=== PATIENT | male | born 1955 | race American Indian/Alaskan Native ===

== ENCOUNTER 2017-02-15 09:50 | Emergency (ER) | payer SELFPAY ==
[2017-02-15 10:33] VITALS: BP 126/75
--- NOTE | 2017-02-15 10:54 | Emergency Department Report ---
Entered by ED FERRARI, acting as scribe for MARY CHOWDHURY PA. Chief Complaint: Psych Stated Complaint: MENTAL EVAL Time Seen by Provider: 02/15/17 10:40 - HPI History of Present Illness: Patient presents to the ED c/o visual hallucinations for 7 days. Report seeing animals and people. Denies any pain. Pt has a PMHx of mental health problems. - ROS Review of Systems: All system are negative unless stated in HPI above. - Exam Vital Signs: Vital Signs 02/15/17 10:30 Temperature 99.1 F Pulse Rate 87 Respiratory 20 Rate Blood Pressure 126/75 O2 Sat by Pulse 97 Oximetry Physical Exam: General:well nourished, well developed, nontoxic in appearance, in no acute distress Cardiovascular: S1/S2 regular rate and rhythm. No murmur. Psychiatric: Calm. Normal behavior. Positive visual hallucinations. No homicidal ideation. No suicidal ideation. MSE screening note: Focused history and physical exam performed. Due to findings the following was ordered: ED Medical Decision Making - Medical Decision Making Medical decision making: Patient seen by provider in triage area. Appropriate protocol activated and patient to main ED to be seen by provider ED Disposition for MSE Condition: Stable This documentation as recorded by the scribe,ED FERRARI,accurately reflects the service I personally performed and the decisions made by me,MARY CHOWDHURY PA.
[2017-02-15 11:08] LABS: Basophils % (Auto) 0.4 % (0.0-1.8); Eosinophils % (Auto) 1.1 % (0.0-4.3); Hematocrit 42.9 % (35.5-45.6); Hemoglobin 14.2 gm/dl (11.8-15.2); Mean Corpuscular HGB Conc 33 % (32-34); Mean Corpuscular Hemoglobin 29 pg (28-32); Mean Corpuscular Volume 88 fl (84-94); Platelet Count 201 K/mm3 (140-440); Red Blood Count 4.87 M/mm3 (3.65-5.03); Red Cell Distribution Width 14.3 % (13.2-15.2); White Blood Count 7.7 K/mm3 (4.5-11.0)
[2017-02-15 11:15] LABS: Anion Gap 16 mmol/L; BUN/Creatinine Ratio 16.25; Blood Urea Nitrogen 13 mg/dL (9-20); Calcium 9.4 mg/dL (8.4-10.2); Carbon Dioxide 26 mmol/L (22-30); Chloride 101.4 mmol/L (98-107); Glucose 128 mg/dL (75-100); Potassium 3.6 mmol/L (3.6-5.0); Sodium 140 mmol/L (137-145)
--- NOTE | 2017-02-15 12:23 | Emergency Department Report ---
ED Psych HPI - General Chief Complaint: Psych Stated Complaint: MENTAL EVAL Time Seen by Provider: 02/15/17 10:54 Source: patient Mode of arrival: Ambulatory Limitations: No Limitations - History of Present Illness Initial Comments: 62-year-old male presents to the emergency department complaining of visual hallucinations. Patient states over the past several days he has been people and his dog. Patient states since September he has had 5 family members , including his Candace. He denies auditory hallucinations. He also denies suicidal or homicidal thoughts. There are no other complaints. -: Gradual, days(s) (5) Associated Psychiatric Symptoms: visual hallucinations History of same: Yes Quality: intermittent Improves With: none Worsens With: none Associated Symptoms: denies other symptoms Treatments Prior to Arrival: none - Related Data Home Medications Medication Instructions Recorded Confirmed Last Taken Unobtainable 02/15/17 02/15/17 Unknown Allergies Allergy/AdvReac Type Severity Reaction Status Date / Time No Known Allergies Allergy Unverified 02/15/17 10:29 ED Review of Systems ROS: Stated complaint: MENTAL EVAL Other details as noted in HPI Comment: All other systems reviewed and negative Psychiatric: visual hallucinations. denies: auditory hallucinations, homicidal thoughts, suicidal thoughts ED Past Medical Hx - Past Medical History Previous Medical History?: Yes Hx Hypertension: Yes Hx Psychiatric Treatment: Yes (psychosis) - Surgical History Past Surgical History?: No - Family History Family history: no significant - Social History Smoking Status: Former Smoker Substance Use Type: Marijuana, Prescribed - Medications Home Medications: Home Medications Medication Instructions Recorded Confirmed Last Taken Type Unobtainable 02/15/17 02/15/17 Unknown History ED Physical Exam - General Limitations: No Limitations General appearance: alert, in no apparent distress - Head Head exam: Present: atraumatic, normocephalic - Eye Eye exam: Present: normal appearance, PERRL, EOMI - ENT ENT exam: Present: normal exam, normal orophraynx, mucous membranes moist - Neck Neck exam: Present: normal inspection, full ROM. Absent: tenderness - Respiratory Respiratory exam: Present: normal lung sounds bilaterally. Absent: respiratory distress - Cardiovascular Cardiovascular Exam: Present: regular rate, normal rhythm, normal heart sounds - GI/Abdominal GI/Abdominal exam: Present: soft, normal bowel sounds. Absent: distended, tenderness - Extremities Exam Extremities exam: Present: normal inspection, full ROM. Absent: tenderness - Back Exam Back exam: Present: normal inspection, full ROM. Absent: tenderness - Neurological Exam Neurological exam: Present: alert, oriented X3. Absent: motor sensory deficit - Skin Skin exam: Present: warm, dry, intact ED Course Vital Signs 02/15/17 10:30 Temperature 99.1 F Pulse Rate 87 Respiratory 20 Rate Blood Pressure 126/75 O2 Sat by Pulse 97 Oximetry ED Medical Decision Making - Lab Data Result diagrams: 02/15/17 10:46 02/15/17 10:46 - Medical Decision Making Lab results reviewed. Patient is likely cleared. Patient does not meet in patient criteria, form 1013 will not be signed. Patient has been evaluated by mental health and is being referred for outpatient treatment. Patient will be discharged home at this time. - Differential Diagnosis psychosis, grief reaction Critical care attestation.: If time is entered above; I have spent that time in minutes in the direct care of this critically ill patient, excluding procedure time. ED Disposition Clinical Impression: Visual hallucinations, Grief reaction Disposition: DISCHARGED TO HOME OR SELFCARE Is pt being admited?: No Condition: Stable Instructions: Grief and Loss (ED) Referrals: [facility] [Other] - 3-5 Days Time of Disposition: 14:47
[2017-02-15 12:32] LABS: Urine Drugs of Abuse Note Disclamer
[2017-02-15 12:44] LABS: Bilirubin,Urine NEG (Negative); Blood,Urine NEG (Negative); Ketones,Urine NEG (Negative); Leukocyte Esterase,Urine NEG (Negative); Mucus,Urine 2+ /HPF; Nitrite,Urine NEG (Negative); Protein,Urine <15 mg/dL mg/dL (Negative)
== END 2017-02-15 15:01 | disposition home or self-care (01) ==
LOC: EEVIPCON 09:50 → ED 09:50
DX: R44.1 Visual hallucinations (principal); F43.20 Adjustment disorder, unspecified; I10 Essential (primary) hypertension; F29 Unspecified psychosis not due to a substance or known physiological condition; F12.10 Cannabis abuse, uncomplicated; Z87.891 Personal history of nicotine dependence
CPT/HCPCS: 36415; 80048; 80307; 81001; 85025; 99284; G0480; 80320

== ENCOUNTER 2017-11-02 12:20 | Inpatient (IN) | payer OTHER ==
[2017-11-02] MEDS ORDERED: NACL 0.9% 1000 ML 1,000 ML ONE (13:05)
[2017-11-02 13:08] LABS: Basophils % (Auto) 0.1 % (0.0-1.8); Eosinophils % (Auto) 0.3 % (0.0-4.3); Hematocrit 36.1 % (35.5-45.6); Hemoglobin 12.1 gm/dl (11.8-15.2); Lymphocytes # (Auto) 0.7 K/mm3 (1.2-5.4); Lymphocytes % (Auto) 7.4 % (13.4-35.0); Mean Corpuscular HGB Conc 33 % (32-34); Mean Corpuscular Hemoglobin 30 pg (28-32); Mean Corpuscular Volume 88 fl (84-94); Monocytes # (Auto) 0.7 K/mm3 (0.0-0.8); Monocytes % (Auto) 7.3 % (0.0-7.3); Platelet Count 220 K/mm3 (140-440); Red Blood Count 4.08 M/mm3 (3.65-5.03); Red Cell Distribution Width 13.6 % (13.2-15.2)
[2017-11-02] MEDS ORDERED: NACL 0.9% 1000 ML 1,000 ML IV ONE ×3 (13:08→15:18)
[2017-11-02 13:23] LABS: Calcium 9.1 mg/dL (8.4-10.2)
[2017-11-02 13:24] LABS: INR 1.14 (0.87-1.13); Partial Thromboplastin Time 27.2 Sec. (24.2-36.6)
--- NOTE | 2017-11-02 14:28 | Emergency Department Report ---
ED Syncope HPI - General Chief Complaint: Weakness Stated Complaint: SYNCOPE/MUSCLE CRAMPS/HALUCINATIONS Time Seen by Provider: 11/02/17 13:10 Source: patient, family Exam Limitations: other (dementia) - History of Present Illness Initial Comments: 62-year-old male with a past medical history hypertension, Lewy body dementia, and psychosis presents to the hospital with multiple episodes of syncope and increased episodes of combative behavior. Patient lives at home with his daughter who is in the process of trying to get him into a group home. She states for the past week patient has been having recurrent syncopal episodes are primarily occur with standing. Also decreased food intake reported for the past week although patient was to drink fluids. Also complaining of intermittent cramping to lower extremities. Patient has significant dementia and is unable to provide any history of present illness. He denies any pain currently. He is oriented to self, knows that his daughter is in a room with him but does not know the place or year. Patient's also able to follow commands. Patient has been on Aricept since August. Patient's daughter felt like this medication could be contributing to patients symptoms therefore she discontinued the medication on October 30. Patient did not receive his a.m. blood pressure medications today. Last dose was yesterday a.m. - Related Data Allergies/Adverse Reactions: Allergies No Known Allergies Allergy (Unverified 02/15/17 10:29) Home Medications: Ambulatory Orders Unobtainable 02/15/17 ED Review of Systems ROS: Stated complaint: SYNCOPE/MUSCLE CRAMPS/HALUCINATIONS Other details as noted in HPI Comment: Unobtainable due to pts medical conditions (dementia, see hpi) ED Past Medical Hx - Past Medical History Previous Medical History?: Yes Hx Hypertension: Yes Hx Psychiatric Treatment: Yes (psychosis) - Surgical History Past Surgical History?: No - Social History Smoking Status: Never Smoker Substance Use Type: Prescribed - Medications Home Medications: Home Medications Medication Instructions Recorded Confirmed Last Taken Type Unobtainable 02/15/17 02/15/17 Unknown History ED Physical Exam - General Limitations: Physical Limitation - Other Other exam information: General: dementia, no distress noted Head exam: Atraumatic, normocephalic Eyes exam: Normal appearance, pupils equal reactive to light ENT: Moist mucous membrane, normal oropharynx Neck exam: Normal inspection, full range of motion, no meningismus nontender Respiratory exam: Clear to auscultation bilateral, no wheezes, rales, crackles Cardiovascular: Normal rate and rhythm Abdomen: Soft, nondistended, and nontender, with normal bowel sounds, no rebound, or guarding Extremity: Full range of motion normal inspection no deformity Back: Normal Inspection, full range of motion, no tenderness Neurologic: Alert, oriented to self only, cranial nerves intact, 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 Able to lift both legs off the bed and sustained against gravity. Sensation grossly intact Psychiatric: normal affect, normal mood Skin: Warm, dry, intact ED Course Vital Signs 11/02/17 11/02/17 11/02/17 12:31 12:50 13:00 Temperature 98 F Pulse Rate 90 76 70 Respiratory 20 17 17 Rate Blood Pressure 60/30 80/46 Blood Pressure [Left] Blood Pressure [Right] O2 Sat by Pulse 97 99 Oximetry 11/02/17 11/02/17 11/02/17 13:30 13:40 14:08 Temperature Pulse Rate 68 75 Respiratory 18 25 H Rate Blood Pressure 80/46 89/46 Blood Pressure 80/46 [Left] Blood Pressure 70/38 [Right] O2 Sat by Pulse 98 99 100 Oximetry 11/02/17 14:31 Temperature Pulse Rate 68 Respiratory 18 Rate Blood Pressure 98/52 Blood Pressure [Left] Blood Pressure [Right] O2 Sat by Pulse 99 Oximetry - Reevaluation(s) Reevaluation #1: 11/02/17 14:29 sbp 89 after 1 L of NS, second Liter pending ED Medical Decision Making - Lab Data Result diagrams: 11/02/17 Unknown 11/02/17 Unknown Lab Results 11/02/17 11/02/17 11/02/17 Range/Units 14:28 Unknown Unknown WBC 10.1 (4.5-11.0) K/mm3 RBC 4.08 (3.65-5.03) M/mm3 Hgb 12.1 (11.8-15.2) gm/dl Hct 36.1 (35.5-45.6) % MCV 88 (84-94) fl MCH 30 (28-32) pg MCHC 33 (32-34) % RDW 13.6 (13.2-15.2) % Plt Count 220 (140-440) K/mm3 Lymph % (Auto) 7.4 L (13.4-35.0) % [place] % (Auto) 7.3 (0.0-7.3) % Eos % (Auto) 0.3 (0.0-4.3) % Baso % (Auto) 0.1 (0.0-1.8) % Lymph # 0.7 L (1.2-5.4) K/mm3 [place] # 0.7 (0.0-0.8) K/mm3 Eos # 0.0 (0.0-0.4) K/mm3 Baso # 0.0 (0.0-0.1) K/mm3 Seg Neutrophils % 84.9 H (40.0-70.0) % Seg Neutrophils # 8.6 H (1.8-7.7) K/mm3 PT 15.2 H (12.2-14.9) Sec. INR 1.14 H (0.87-1.13) APTT 27.2 (24.2-36.6) Sec. Thrombin Time (15.1-19.6) Sec. Sodium (137-145) mmol/L Potassium (3.6-5.0) mmol/L Chloride (98-107) mmol/L Carbon Dioxide (22-30) mmol/L Anion Gap mmol/L BUN (9-20) mg/dL Creatinine (0.8-1.5) mg/dL Estimated GFR ml/min BUN/Creatinine Ratio % Glucose (75-100) mg/dL Calcium (8.4-10.2) mg/dL Magnesium (1.7-2.3) mg/dL Total Creatine Kinase (55-170) units/L CK-MB (CK-2) (0.0-4.0) ng/mL CK-MB (CK-2) Rel Index (0-4) Troponin T (0.00-0.029) ng/mL Triglycerides (2-149) mg/dL Cholesterol (50-199) mg/dL LDL Cholesterol Direct (50-130) mg/dL HDL Cholesterol (40-59) mg/dL Cholesterol/HDL Ratio % Urine Color Yellow (Yellow) Urine Turbidity Clear (Clear) Urine pH 6.0 (5.0-7.0) Ur Specific [place] 1.018 (1.003-1.030) Urine Protein 30 mg/dl (Negative) mg/dL Urine Glucose (UA) 50 (Negative) mg/dL Urine Ketones Tr (Negative) mg/dL Urine Blood Lg (Negative) Urine Nitrite Neg (Negative) Urine Bilirubin Neg (Negative) Urine Urobilinogen 4.0 (<2.0) mg/dL Ur Leukocyte Esterase Neg (Negative) Urine WBC (Auto) 12.0 H (0.0-6.0) /HPF Urine RBC (Auto) 63.0 (0.0-6.0) /HPF U Epithel Cells (Auto) 1.0 (0-13.0) /HPF Hyaline Casts 1 /LPF Urine Mucus 1+ /HPF 11/02/17 11/02/17 11/02/17 Range/Units Unknown Unknown Unknown WBC (4.5-11.0) K/mm3 RBC (3.65-5.03) M/mm3 Hgb (11.8-15.2) gm/dl Hct (35.5-45.6) % MCV (84-94) fl MCH (28-32) pg MCHC (32-34) % RDW (13.2-15.2) % Plt Count (140-440) K/mm3 Lymph % (Auto) (13.4-35.0) % [place] % (Auto) (0.0-7.3) % Eos % (Auto) (0.0-4.3) % Baso % (Auto) (0.0-1.8) % Lymph # (1.2-5.4) K/mm3 [place] # (0.0-0.8) K/mm3 Eos # (0.0-0.4) K/mm3 Baso # (0.0-0.1) K/mm3 Seg Neutrophils % (40.0-70.0) % Seg Neutrophils # (1.8-7.7) K/mm3 PT (12.2-14.9) Sec. INR (0.87-1.13) APTT (24.2-36.6) Sec. Thrombin Time 14.6 L (15.1-19.6) Sec. Sodium 137 (137-145) mmol/L Potassium 3.5 L (3.6-5.0) mmol/L Chloride 94.7 L (98-107) mmol/L Carbon Dioxide 26 (22-30) mmol/L Anion Gap 20 mmol/L BUN 44 H (9-20) mg/dL Creatinine 2.0 H (0.8-1.5) mg/dL Estimated GFR 41 ml/min BUN/Creatinine Ratio 22 % Glucose 135 H (75-100) mg/dL Calcium 9.1 (8.4-10.2) mg/dL Magnesium 2.00 (1.7-2.3) mg/dL Total Creatine Kinase 246 H (55-170) units/L CK-MB (CK-2) 3.7 (0.0-4.0) ng/mL CK-MB (CK-2) Rel Index 1.5 (0-4) Troponin T 0.031 H (0.00-0.029) ng/mL Triglycerides 54 (2-149) mg/dL Cholesterol 135 (50-199) mg/dL LDL Cholesterol Direct 63 (50-130) mg/dL HDL Cholesterol 62 H (40-59) mg/dL Cholesterol/HDL Ratio 2.17 % Urine Color (Yellow) Urine Turbidity (Clear) Urine pH (5.0-7.0) Ur Specific [place] (1.003-1.030) Urine Protein (Negative) mg/dL Urine Glucose (UA) (Negative) mg/dL Urine Ketones (Negative) mg/dL Urine Blood (Negative) Urine Nitrite (Negative) Urine Bilirubin (Negative) Urine Urobilinogen (<2.0) mg/dL Ur Leukocyte Esterase (Negative) Urine WBC (Auto) (0.0-6.0) /HPF Urine RBC (Auto) (0.0-6.0) /HPF U Epithel Cells (Auto) (0-13.0) /HPF Hyaline Casts /LPF Urine Mucus /HPF - EKG Data -: EKG Interpreted by [place] EKG shows normal: sinus rhythm (91), axis (21), QRS complexes (93), ST-T waves ( no stemi/t inv) - EKG Data When compared to previous EKG there are: previous EKG unavailable - Radiology Data Radiology results: report reviewed ct head: naf cxr: unremarkable - Medical Decision Making Patient's blood pressure responding to IV fluids UA positive for infection bolivar ph, lactic, blood and urine cultures pending Rocephin initiated CT head chest x-ray unremarkable Hospitalist informed Patient will be admitted to telemetry but if systolic pressure continued to drop will need ICU upgrade - Differential Diagnosis infection, anemia, medication overdose, vasovagal, dehydration Critical Care Time: No Critical care attestation.: If time is entered above; I have spent that time in minutes in the direct care of this critically ill patient, excluding procedure time. ED Disposition Clinical Impression: Syncope, Renal insufficiency, UTI (urinary tract infection), Hypokalemia, Elevated troponin, Hypotension Disposition: OP ADMIT IP TO THIS HOSP Is pt being admited?: Yes Condition: Stable Time of Disposition: 16:13 (Dr Lindsey/hosp)
--- NOTE | 2017-11-02 14:34 | XRay Report ---
AP CHEST: HISTORY: Altered mental status, hypotension AP view of the chest demonstrates a normal mediastinal and cardiac contour with clear lungs and normal bony and soft tissue structures. IMPRESSION: Unremarkable AP chest.
--- NOTE | 2017-11-02 14:46 | Cat Scan Report ---
CT HEAD WITHOUT CONTRAST: HISTORY: Neurological deficits. TECHNIQUE: Sequential 2.5mm CT images. COMPARISON: none. FINDINGS: Cerebral Parenchyma: Within normal limits. Cerebellum: Within normal limits. Brainstem: Within normal limits. Ventricles: Normal. Sella: Normal. Extra-axial spaces: Normal. Basal Cisterns: Normal. Intracranial Hemorrhage: None. Midline Shift: None. Calvarium: Normal. Sinuses: Normal. Mastoid Air Cells: Normal. Visualized Orbits: Normal. IMPRESSION: Cranial CT scan within normal limits.
[2017-11-02 14:50] LABS: Bilirubin,Urine NEG (Negative); Blood,Urine LG (Negative); Color,Urine Yellow (Yellow); Hyaline Casts,Urine 1 /LPF; Mucus,Urine 1+ /HPF; Nitrite,Urine NEG (Negative)
[2017-11-02 15:02] LABS: Creatine Kinase MB 3.7 ng/mL (0.0-4.0)
[2017-11-02] MEDS ORDERED: ROCEPHIN/NS 1 GM/50 ML 1 GM/50 ML BAG IV ONE (15:18)
[2017-11-02 15:51] LABS: Chol/HDL Ratio 2.17 %
[2017-11-02] MEDS ORDERED: cefTRIAXone 1 GM in NACL 0.9% 20 ML IV ONE (16:30)
--- NOTE | 2017-11-02 19:16 | History and Physical Report ---
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 Daughter attributes passing out to Aricept administration. Passes out when standing and loses consciousness for a few seconds. No chest pain. No shortness of breath. Also patient has been very poor oral intake. Patient also has cramping. No shortness of breath. Daughter says she wants a custodial placement for further care as she is unable to take care of him. No abdominal pain. No fever no chills. Very poor oral intake. Past Medical History Previous Medical History?: Yes Hx Hypertension: Yes Hx Psychiatric Treatment: Yes (psychosis) Early dementia. Agitation. Behavioral disturbances. Surgical History Past Surgical History?: No - Social History Smoking Status: Never Smoker Substance Use Type: Prescribed Family history hypertension Medications Aricept 10 mg once a day Risperdal 0.5 daily at bedtime Fluoxetine 40 mg once a day lisinopril 10 mg once a day Hydrochlorothiazide 25 mg once a day Aspirin 81 mg by mouth daily Review of System: Constitutional: no fever, no chills, no weight loss Ears, eyes, nose, mouth and throat: no nasal congestion, no nasal discharge, no sinus pressure, no vision change, no red eye. Neck: No neck pain or rigidity. Cardiovascular: No chest pain, no orthopnea, no palpitations, no leg swelling Respiratory: No shortness of breath, no cough, no congestion, no wheezing Gastrointestinal: no abdominal pain, no nausea, no vomiting Genitourinary : no dysuria, no hematuria Musculoskeletal: no joint swelling or muscle ache Integumentary: no rash, no pruritis Neurological: no parathesias, no numbness, no tingling.has behavioral disturbances. Agitation. Early dementia. Frequent syncopal attacks. No seizures. Endocrine: no cold or heat intolerance, no polyuria or polydipsia Hematologic/Lymphatic: no easy bruising, no easy bleeding, no gland swelling Allergic/Immunologic: no urticaria, no angioedema. Medications and Allergies Allergies Allergy/AdvReac Type Severity Reaction Status Date / Time No Known Allergies Allergy Unverified 02/15/17 10:29 Home Medications Medication Instructions Recorded Confirmed Last Taken Type Aspirin [Aspirin EC] 81 mg PO DAILY 11/02/17 11/02/17 11/01/17 History FLUoxetine HCL [PROzac] 40 mg PO QDAY 11/02/17 11/02/17 11/01/17 History Hydrochlorothiazide [HCTZ] 25 mg PO QDAY 11/02/17 11/02/17 11/01/17 History Lisinopril [Zestril TAB] 10 mg PO QDAY 11/02/17 11/02/17 11/01/17 History risperiDONE [Risperdal] 0.5 mg PO QHS 11/02/17 11/02/17 11/01/17 History Exam - Physical Exam Narrative exam: Patient lying comfortably in bed - Constitutional Vitals: Temp Pulse Resp BP Pulse Ox 98 F 77 15 112/63 99 11/02/17 12:31 11/02/17 17:30 11/02/17 17:30 11/02/17 17:30 11/02/17 17:30 General appearance: Present: no acute distress, well-nourished - EENT Eyes: Present: PERRL ENT: hearing intact, clear oral mucosa - Neck Neck: Present: supple, normal ROM - Respiratory Respiratory effort: normal Respiratory: bilateral: CTA - Cardiovascular Heart rate: 70 Rhythm: regular Heart Sounds: Present: S1 & S2. Absent: rub, click - Extremities Extremities: no ischemia, pulses intact, pulses symmetrical, No edema Peripheral Pulses: within normal limits - Abdominal General gastrointestinal: Present: soft, non-tender, non-distended, normal bowel sounds Male genitourinary: Present: normal - Integumentary Integumentary: Present: clear, warm, dry - Musculoskeletal Musculoskeletal: gait normal, strength equal bilaterally - Psychiatric Psychiatric: agitated, other (lying in bed. Tries to answer questions. Apparently agitated and aggressive behavior as per the daughter) - Neurologic Neurologic: CNII-XII intact, moves all extremities Results - Labs CBC & Chem 7: 11/02/17 Unknown 11/02/17 Unknown Labs: Laboratory Last Values WBC 10.1 K/mm3 (4.5-11.0) 11/02/17 Unknown RBC 4.08 M/mm3 (3.65-5.03) 11/02/17 Unknown Hgb 12.1 gm/dl (11.8-15.2) 11/02/17 Unknown Hct 36.1 % (35.5-45.6) 11/02/17 Unknown MCV 88 fl (84-94) 11/02/17 Unknown MCH 30 pg (28-32) 11/02/17 Unknown MCHC 33 % (32-34) 11/02/17 Unknown RDW 13.6 % (13.2-15.2) 11/02/17 Unknown Plt Count 220 K/mm3 (140-440) 11/02/17 Unknown Lymph % (Auto) 7.4 % (13.4-35.0) L 11/02/17 Unknown [place] % (Auto) 7.3 % (0.0-7.3) 11/02/17 Unknown Eos % (Auto) 0.3 % (0.0-4.3) 11/02/17 Unknown Baso % (Auto) 0.1 % (0.0-1.8) 11/02/17 Unknown Lymph # 0.7 K/mm3 (1.2-5.4) L 11/02/17 Unknown [place] # 0.7 K/mm3 (0.0-0.8) 11/02/17 Unknown Eos # 0.0 K/mm3 (0.0-0.4) 11/02/17 Unknown Baso # 0.0 K/mm3 (0.0-0.1) 11/02/17 Unknown Seg Neutrophils % 84.9 % (40.0-70.0) H 11/02/17 Unknown Seg Neutrophils # 8.6 K/mm3 (1.8-7.7) H 11/02/17 Unknown PT 15.2 Sec. (12.2-14.9) H 11/02/17 Unknown INR 1.14 (0.87-1.13) H 11/02/17 Unknown APTT 27.2 Sec. (24.2-36.6) 11/02/17 Unknown Thrombin Time 14.6 Sec. (15.1-19.6) L 11/02/17 Unknown VBG pH 7.340 (7.320-7.420) 11/02/17 18:10 Sodium 137 mmol/L (137-145) 11/02/17 Unknown Potassium 3.5 mmol/L (3.6-5.0) L 11/02/17 Unknown Chloride 94.7 mmol/L (98-107) L 11/02/17 Unknown Carbon Dioxide 26 mmol/L (22-30) 11/02/17 Unknown Anion Gap 20 mmol/L 11/02/17 Unknown BUN 44 mg/dL (9-20) H 11/02/17 Unknown Creatinine 2.0 mg/dL (0.8-1.5) H 11/02/17 Unknown Estimated GFR 41 ml/min 11/02/17 Unknown BUN/Creatinine Ratio 22 % 11/02/17 Unknown Glucose 135 mg/dL (75-100) H 11/02/17 Unknown Lactic Acid 0.80 mmol/L (0.7-2.0) 11/02/17 18:10 Calcium 9.1 mg/dL (8.4-10.2) 11/02/17 Unknown Magnesium 2.00 mg/dL (1.7-2.3) 11/02/17 Unknown Total Creatine Kinase 246 units/L (55-170) H 11/02/17 Unknown CK-MB (CK-2) 3.7 ng/mL (0.0-4.0) 11/02/17 Unknown CK-MB (CK-2) Rel Index 1.5 (0-4) 11/02/17 Unknown Troponin T 0.031 ng/mL (0.00-0.029) H 11/02/17 Unknown Triglycerides 54 mg/dL (2-149) 11/02/17 Unknown Cholesterol 135 mg/dL (50-199) 11/02/17 Unknown LDL Cholesterol Direct 63 mg/dL (50-130) 11/02/17 Unknown HDL Cholesterol 62 mg/dL (40-59) H 11/02/17 Unknown Cholesterol/HDL Ratio 2.17 % 11/02/17 Unknown Urine Color Yellow (Yellow) 11/02/17 14:28 Urine Turbidity Clear (Clear) 11/02/17 14:28 Urine pH 6.0 (5.0-7.0) 11/02/17 14:28 Ur Specific [place] 1.018 (1.003-1.030) 11/02/17 14:28 Urine Protein 30 mg/dl mg/dL (Negative) 11/02/17 14:28 Urine Glucose (UA) 50 mg/dL (Negative) 11/02/17 14:28 Urine Ketones Tr mg/dL (Negative) 11/02/17 14:28 Urine Blood Lg (Negative) 11/02/17 14:28 Urine Nitrite Neg (Negative) 11/02/17 14:28 Urine Bilirubin Neg (Negative) 11/02/17 14:28 Urine Urobilinogen 4.0 mg/dL (<2.0) 11/02/17 14:28 Ur Leukocyte Esterase Neg (Negative) 11/02/17 14:28 Urine WBC (Auto) 12.0 /HPF (0.0-6.0) H 11/02/17 14:28 Urine RBC (Auto) 63.0 /HPF (0.0-6.0) 11/02/17 14:28 U Epithel Cells (Auto) 1.0 /HPF (0-13.0) 11/02/17 14:28 Hyaline Casts 1 /LPF 11/02/17 14:28 Urine Mucus 1+ /HPF 11/02/17 14:28 Short CBC 11/02/17 Range/Units Unknown WBC 10.1 (4.5-11.0) K/mm3 Hgb 12.1 (11.8-15.2) gm/dl Hct 36.1 (35.5-45.6) % Plt Count 220 (140-440) K/mm3 BMP 11/02/17 Unknown Sodium 137 Potassium 3.5 L Chloride 94.7 L Carbon Dioxide 26 BUN 44 H Creatinine 2.0 H Glucose 135 H Calcium 9.1 Cardiac Enzymes 11/02/17 11/02/17 Range/Units Unknown Unknown Total Creatine Kinase 246 H (55-170) units/L CK-MB (CK-2) 3.7 (0.0-4.0) ng/mL Troponin T 0.031 H (0.00-0.029) ng/mL Urine 11/02/17 Range/Units 14:28 Urine Color Yellow (Yellow) Urine pH 6.0 (5.0-7.0) Ur Specific [place] 1.018 (1.003-1.030) Urine Protein 30 mg/dl (Negative) mg/dL Urine Glucose (UA) 50 (Negative) mg/dL - Imaging and Cardiology EKG: report reviewed (normal sinus rhythm nonspecific ST-T wave changes. interpreted by me) Chest x-ray: report reviewed CT Scan - head: report reviewed (no acute findings) Assessment and Plan Advance Directives: Yes (full code) VTE prophylaxis?: Chemical Plan of care discussed with patient/family: Yes - Patient Problems (1) Syncope Current Visit: Yes Status: Acute Qualifiers: Syncope type: unspecified Qualified Code(s): R55 - Syncope and collapse Plan to address problem: Multiple episodes of syncope as per the daughter.Initiate the syncope workup.We' ll stop the Aricept.Patient to get a Lexiscan echocardiogram and carotid duplex scan. Also IV fluids. (2) Acute kidney injury Current Visit: Yes Status: Acute Plan to address problem: Secondary to ATN versus volume depletion.Patient is on hydrochlorothiazide.which may be responsible for her renal insufficiency. We will stop the hydrochlorothiazide. We will also stop the lisinopril.we will switch him to amlodipine 10 mg once a day.Also IV fluids for now. (3) Elevated troponin Current Visit: Yes Status: Acute Plan to address problem: Elevated troponin secondary to elevated creatinine.patient get a Lexiscan as part of syncope workup (4) UTI (urinary tract infection) Current Visit: Yes Status: Acute Qualifiers: Urinary tract infection type: acute cystitis Plan to address problem: IV Rocephin for now (5) Hypertension Current Visit: Yes Status: Chronic Qualifiers: Hypertension type: essential hypertension Qualified Code(s): I10 - Essential (primary) hypertension Plan to address problem: stop lisinopril and hydrochlorothiaz. Start amlodipine 10 mg once a day. (6) DVT prophylaxis Current Visit: Yes Status: Acute Plan to address problem: on Lovenox 30 mg subcutaneous daily (7) Dementia Current Visit: Yes Status: Chronic Qualifiers: Dementia type: Lewy body dementia Dementia behavioral disturbance: with behavioral disturbance Qualified Code(s): G31.83 - Dementia with Lewy bodies; F02.81 - Dementia in other diseases classified elsewhere with behavioral disturbance; F02.81 - Dementia in other diseases classified elsewhere with behavioral disturbance; F02.81 - Dementia in other diseases classified elsewhere with behavioral disturbance Plan to address problem: Patient has early onset dementia.daughter attributes his syncopal episodes to Aricept. We will stop the Aricept.Mental health consult for management of behavioral disturbances (8) Hypokalemia Current Visit: Yes Status: Acute Plan to address problem: supplemented. Secondary to hydrochlorothiazide.
[2017-11-02] MEDS ORDERED: ROCEPHIN/NS 1 GM/50 ML 1 GM/50 ML BAG IV SCH (20:00)
[2017-11-02] MEDS ORDERED: ZESTRIL PO SCH (20:00)
[2017-11-02] MEDS ORDERED: HCTZ PO SCH (21:00)
[2017-11-02] MEDS ORDERED: NON-FORMULARY (Risperidone [Risperdal] 0.5 MG) PO SCH (22:00)
[2017-11-02] MEDS: NORVASC PO SCH (22:19)
[2017-11-02] MEDS: RisperDAL PO SCH (22:19)
[2017-11-03] MEDS: D5W/0.45% NACL/KCL 10 MEQ 10 MEQ/1,000 ML BAG IV SCH (02:34)
[2017-11-03 06:34] LABS: Basophils % (Auto) 0.4 % (0.0-1.8); Eosinophils # (Auto) 0.1 K/mm3 (0.0-0.4); Eosinophils % (Auto) 1.2 % (0.0-4.3); Hematocrit 29.3 % (35.5-45.6); Hemoglobin 10.1 gm/dl (11.8-15.2); Lymphocytes # (Auto) 1.6 K/mm3 (1.2-5.4); Mean Corpuscular HGB Conc 34 % (32-34); Mean Corpuscular Hemoglobin 31 pg (28-32); Mean Corpuscular Volume 89 fl (84-94); Monocytes # (Auto) 1.1 K/mm3 (0.0-0.8); Monocytes % (Auto) 10.1 % (0.0-7.3); Platelet Count 177 K/mm3 (140-440); Red Cell Distribution Width 13.5 % (13.2-15.2)
[2017-11-03 07:03] LABS: Alanine Aminotransferase 14 units/L (7-56); Albumin 3.2 g/dL (3.9-5); BUN/Creatinine Ratio 26; Blood Urea Nitrogen 31 mg/dL (9-20); Calcium 8.4 mg/dL (8.4-10.2); Hemolysis Index 2
[2017-11-03] MEDS: HALFPRIN EC PO SCH (10:00)
[2017-11-03] MEDS: PROzac PO SCH (10:00)
[2017-11-03] MEDS: NORVASC PO SCH (10:00)
[2017-11-03] MEDS ORDERED: NON-FORMULARY (Fluoxetine Hcl [Prozac] 40 MG) PO SCH (10:00)
[2017-11-03] MEDS ORDERED: LEXISCAN IV ONE ×2 (11:20→12:00)
--- NOTE | 2017-11-03 12:44 | Progress Note ---
Assessment and Plan Assessment and plan: Patient is a 62-year-old man from home with history of hypertension in E body dementia who presented with syncopal episode and cooperative behavior. CT head reported as no acute findings Chest x-ray reported as no acute findings Creatinine went from 2.0-->1.2 Hemoglobin was 12.1-->10.1 -Acute metabolic encephalopathy with dehydration: IVF -Syncope, autonomic dysfunction: Stress, echo pending -Drop in HCT, ?dilutional: repeat h/h -UTI: abx, follow cultures -TOMY, vasomotor nephropathy, poa: ivf -Lewy body with autonomic dysfunction is a poor prognostic sign: consult Neurology History Interval history: Patient was seen and examined. Follow-up on current diagnosis/ams. Overnight uneventful. Patient gives no history. Imaging, nursing note, chart, labs and old chart reviewed. Hospitalist Physical - Physical exam Narrative exam: GEN: thin frail NAD, AWAKE, ALERT, confused HEENT: NCAT, EOMI, PERRL, OP dry NECK: supple, no adenopathy, no thyromegaly, no JVD CVS/HEART: RRR, NORMAL S1S2, NO JVD, pulses present bilaterally CHEST/LUNGS: CTA B, Symmetrical chest expansion, good air entry bilaterally GI/Abdomen: soft, NTND, good bowel sounds, no guarding or rebound /Bladder: no suprapubic tenderness, no CVA or paraspinal tenderness EXT/Skin: no c/c/e, no obvious rash, mmm dry MSK: FROM x 4 Neuro: CN 2-12 grossly intact, no new focal deficits Psych: agitated - Constitutional Vitals: Temp Pulse Resp BP Pulse Ox 98.0 F 71 20 81/49 97 11/03/17 04:44 11/03/17 10:00 11/03/17 04:44 11/03/17 04:44 11/03/17 04:44 General appearance: Present: no acute distress, well-nourished Results - Labs CBC & Chem 7: 11/03/17 05:35 11/03/17 05:35 Labs: Laboratory Last Values WBC 10.7 K/mm3 (4.5-11.0) 11/03/17 05:35 RBC 3.30 M/mm3 (3.65-5.03) L 11/03/17 05:35 Hgb 10.1 gm/dl (11.8-15.2) L 11/03/17 05:35 Hct 29.3 % (35.5-45.6) L D 11/03/17 05:35 MCV 89 fl (84-94) 11/03/17 05:35 MCH 31 pg (28-32) 11/03/17 05:35 MCHC 34 % (32-34) 11/03/17 05:35 RDW 13.5 % (13.2-15.2) 11/03/17 05:35 Plt Count 177 K/mm3 (140-440) 11/03/17 05:35 Lymph % (Auto) 15.0 % (13.4-35.0) 11/03/17 05:35 [place] % (Auto) 10.1 % (0.0-7.3) H 11/03/17 05:35 Eos % (Auto) 1.2 % (0.0-4.3) 11/03/17 05:35 Baso % (Auto) 0.4 % (0.0-1.8) 11/03/17 05:35 Lymph # 1.6 K/mm3 (1.2-5.4) 11/03/17 05:35 [place] # 1.1 K/mm3 (0.0-0.8) H 11/03/17 05:35 Eos # 0.1 K/mm3 (0.0-0.4) 11/03/17 05:35 Baso # 0.0 K/mm3 (0.0-0.1) 11/03/17 05:35 Seg Neutrophils % 73.3 % (40.0-70.0) H 11/03/17 05:35 Seg Neutrophils # 7.8 K/mm3 (1.8-7.7) H 11/03/17 05:35 PT 15.2 Sec. (12.2-14.9) H 11/02/17 Unknown INR 1.14 (0.87-1.13) H 11/02/17 Unknown APTT 27.2 Sec. (24.2-36.6) 11/02/17 Unknown Thrombin Time 14.6 Sec. (15.1-19.6) L 11/02/17 Unknown VBG pH 7.340 (7.320-7.420) 11/02/17 18:10 Sodium 140 mmol/L (137-145) 11/03/17 05:35 Potassium 3.7 mmol/L (3.6-5.0) 11/03/17 05:35 Chloride 101.8 mmol/L (98-107) 11/03/17 05:35 Carbon Dioxide 27 mmol/L (22-30) 11/03/17 05:35 Anion Gap 15 mmol/L 11/03/17 05:35 BUN 31 mg/dL (9-20) H 11/03/17 05:35 Creatinine 1.2 mg/dL (0.8-1.5) 11/03/17 05:35 Estimated GFR > 60 ml/min 11/03/17 05:35 BUN/Creatinine Ratio 26 % 11/03/17 05:35 Glucose 112 mg/dL (75-100) H 11/03/17 05:35 Lactic Acid 0.80 mmol/L (0.7-2.0) 11/02/17 18:10 Calcium 8.4 mg/dL (8.4-10.2) 11/03/17 05:35 Magnesium 2.00 mg/dL (1.7-2.3) 11/03/17 05:35 Total Bilirubin 0.50 mg/dL (0.1-1.2) 11/03/17 05:35 AST 14 units/L (5-40) 11/03/17 05:35 ALT 14 units/L (7-56) 11/03/17 05:35 Alkaline Phosphatase 62 units/L (35-129) 11/03/17 05:35 Total Creatine Kinase 246 units/L (55-170) H 11/02/17 Unknown CK-MB (CK-2) 3.7 ng/mL (0.0-4.0) 11/02/17 Unknown CK-MB (CK-2) Rel Index 1.5 (0-4) 11/02/17 Unknown Troponin T < 0.010 ng/mL (0.00-0.029) 11/03/17 07:52 Total Protein 6.4 g/dL (6.3-8.2) 11/03/17 05:35 Albumin 3.2 g/dL (3.9-5) L 11/03/17 05:35 Albumin/Globulin Ratio 1.0 % 11/03/17 05:35 Triglycerides 54 mg/dL (2-149) 11/02/17 Unknown Cholesterol 135 mg/dL (50-199) 11/02/17 Unknown LDL Cholesterol Direct 63 mg/dL (50-130) 11/02/17 Unknown HDL Cholesterol 62 mg/dL (40-59) H 11/02/17 Unknown Cholesterol/HDL Ratio 2.17 % 11/02/17 Unknown Urine Color Yellow (Yellow) 11/02/17 14:28 Urine Turbidity Clear (Clear) 11/02/17 14:28 Urine pH 6.0 (5.0-7.0) 11/02/17 14:28 Ur Specific [place] 1.018 (1.003-1.030) 11/02/17 14:28 Urine Protein 30 mg/dl mg/dL (Negative) 11/02/17 14:28 Urine Glucose (UA) 50 mg/dL (Negative) 11/02/17 14:28 Urine Ketones Tr mg/dL (Negative) 11/02/17 14:28 Urine Blood Lg (Negative) 11/02/17 14:28 Urine Nitrite Neg (Negative) 11/02/17 14:28 Urine Bilirubin Neg (Negative) 11/02/17 14:28 Urine Urobilinogen 4.0 mg/dL (<2.0) 11/02/17 14:28 Ur Leukocyte Esterase Neg (Negative) 11/02/17 14:28 Urine WBC (Auto) 12.0 /HPF (0.0-6.0) H 11/02/17 14:28 Urine RBC (Auto) 63.0 /HPF (0.0-6.0) 11/02/17 14:28 U Epithel Cells (Auto) 1.0 /HPF (0-13.0) 11/02/17 14:28 Hyaline Casts 1 /LPF 11/02/17 14:28 Urine Mucus 1+ /HPF 11/02/17 14:28
[2017-11-03] MEDS: cefTRIAXone 1 GM in NACL 0.9% 20 ML IV SCH (17:36)
[2017-11-03 17:50] LABS: Hematocrit 31.5 % (35.5-45.6); Hemoglobin 10.2 gm/dl (11.8-15.2)
[2017-11-03] MEDS: RisperDAL PO SCH (22:10)
--- NOTE | 2017-11-04 01:55 | Treadmill Report ---
INDICATION: Chest pain. ORDERING PHYSICIAN: Mesfin Lindsey M.D. FINDINGS: There is no scintigraphic evidence of myocardial ischemia. The left ventricle is normal in size and diastolic function. The left ventricular ejection fraction is measured at 68%. Normal wall motion and wall thickening is noted on gated imaging. CONCLUSION: Normal perfusion scan. JOB# [id number] GÉNESIS/VICENTA
[2017-11-04] MEDS: D5W/0.45% NACL/KCL 10 MEQ 10 MEQ/1,000 ML BAG IV SCH ×2 (04:45→16:54)
[2017-11-04 07:19] LABS: Hematocrit 29.2 % (35.5-45.6); Mean Corpuscular HGB Conc 34 % (32-34); Mean Corpuscular Hemoglobin 31 pg (28-32); Mean Corpuscular Volume 89 fl (84-94); Platelet Count 184 K/mm3 (140-440); Red Blood Count 3.27 M/mm3 (3.65-5.03); Red Cell Distribution Width 13.4 % (13.2-15.2)
[2017-11-04 07:28] LABS: BUN/Creatinine Ratio 14; Blood Urea Nitrogen 13 mg/dL (9-20); Calcium 8.3 mg/dL (8.4-10.2); Hemolysis Index 10
[2017-11-04] MEDS ORDERED: K-DUR PO NR ×2 (09:00→09:30)
[2017-11-04] MEDS: NORVASC PO SCH (10:40)
[2017-11-04] MEDS: HALFPRIN EC PO SCH (10:42)
[2017-11-04] MEDS: PROzac PO SCH (10:42)
--- NOTE | 2017-11-04 13:48 | Progress Note ---
Assessment and Plan Assessment and plan: Patient is a 62-year-old man from home with history of hypertension in E body dementia who presented with syncopal episode and cooperative behavior. CT head reported as no acute findings Chest x-ray reported as no acute findings Creatinine went from 2.0-->1.2 Hemoglobin was 12.1-->10.1 -Acute metabolic encephalopathy with dehydration: IVF -Syncope, autonomic dysfunction: Conservative management -Drop in HCT, steady -UTI: abx, follow cultures -TOMY, vasomotor nephropathy, poa: ivf -Lewy body with autonomic dysfunction is a poor prognostic sign: consulted Neurology 11/02/2017 TTE reported as left ventricular chamber size is normal, estimated ejection fraction is 50-55%, left atrium chamber size is normal, right ventricle chamber size and systolic function are within normal limits, right atrial cavity size normal, no AR, no MR, mild TR, the right ventricular systolic pressure is calculated at 25 mmHg, mild RI Stress test reported normal perfusion scan. Neurology evaluation pending Disposition: Possible placement History Interval history: Patient was seen and examined. Follow-up on current diagnosis/ams. Overnight uneventful. Patient gives no history. Imaging, nursing note, chart, labs and old chart reviewed. Hospitalist Physical - Physical exam Narrative exam: GEN: thin frail NAD, AWAKE, ALERT, confused HEENT: NCAT, EOMI, PERRL, OP dry NECK: supple, no adenopathy, no thyromegaly, no JVD CVS/HEART: RRR, NORMAL S1S2, NO JVD, pulses present bilaterally CHEST/LUNGS: CTA B, Symmetrical chest expansion, good air entry bilaterally GI/Abdomen: soft, NTND, good bowel sounds, no guarding or rebound /Bladder: no suprapubic tenderness, no CVA or paraspinal tenderness EXT/Skin: no c/c/e, no obvious rash, mmm dry MSK: moving all extremities Neuro: CN 2-12 grossly intact, not following commands Psych: Still agitated and restraints - Constitutional Vitals: Temp Pulse Resp BP Pulse Ox 97.8 F 60 18 127/65 98 11/04/17 04:20 11/04/17 09:40 11/04/17 04:20 11/04/17 08:59 11/04/17 08:59 General appearance: Present: no acute distress, well-nourished Results - Labs CBC & Chem 7: 11/04/17 06:15 11/04/17 06:15 Labs: Laboratory Last Values WBC 9.8 K/mm3 (4.5-11.0) 11/04/17 06:15 RBC 3.27 M/mm3 (3.65-5.03) L 11/04/17 06:15 Hgb 10.0 gm/dl (11.8-15.2) L 11/04/17 06:15 Hct 29.2 % (35.5-45.6) L 11/04/17 06:15 MCV 89 fl (84-94) 11/04/17 06:15 MCH 31 pg (28-32) 11/04/17 06:15 MCHC 34 % (32-34) 11/04/17 06:15 RDW 13.4 % (13.2-15.2) 11/04/17 06:15 Plt Count 184 K/mm3 (140-440) 11/04/17 06:15 Lymph % (Auto) 15.0 % (13.4-35.0) 11/03/17 05:35 [place] % (Auto) 10.1 % (0.0-7.3) H 11/03/17 05:35 Eos % (Auto) 1.2 % (0.0-4.3) 11/03/17 05:35 Baso % (Auto) 0.4 % (0.0-1.8) 11/03/17 05:35 Lymph # 1.6 K/mm3 (1.2-5.4) 11/03/17 05:35 [place] # 1.1 K/mm3 (0.0-0.8) H 11/03/17 05:35 Eos # 0.1 K/mm3 (0.0-0.4) 11/03/17 05:35 Baso # 0.0 K/mm3 (0.0-0.1) 11/03/17 05:35 Seg Neutrophils % 73.3 % (40.0-70.0) H 11/03/17 05:35 Seg Neutrophils # 7.8 K/mm3 (1.8-7.7) H 11/03/17 05:35 PT 15.2 Sec. (12.2-14.9) H 11/02/17 Unknown INR 1.14 (0.87-1.13) H 11/02/17 Unknown APTT 27.2 Sec. (24.2-36.6) 11/02/17 Unknown Thrombin Time 14.6 Sec. (15.1-19.6) L 11/02/17 Unknown VBG pH 7.340 (7.320-7.420) 11/02/17 18:10 Sodium 136 mmol/L (137-145) L 11/04/17 06:15 Potassium 3.5 mmol/L (3.6-5.0) L 11/04/17 06:15 Chloride 98.7 mmol/L (98-107) 11/04/17 06:15 Carbon Dioxide 27 mmol/L (22-30) 11/04/17 06:15 Anion Gap 14 mmol/L 11/04/17 06:15 BUN 13 mg/dL (9-20) 11/04/17 06:15 Creatinine 0.9 mg/dL (0.8-1.5) 11/04/17 06:15 Estimated GFR > 60 ml/min 11/04/17 06:15 BUN/Creatinine Ratio 14 % 11/04/17 06:15 Glucose 110 mg/dL (75-100) H 11/04/17 06:15 Lactic Acid 0.80 mmol/L (0.7-2.0) 11/02/17 18:10 Calcium 8.3 mg/dL (8.4-10.2) L 11/04/17 06:15 Magnesium 2.00 mg/dL (1.7-2.3) 11/03/17 05:35 Total Bilirubin 0.50 mg/dL (0.1-1.2) 11/03/17 05:35 AST 14 units/L (5-40) 11/03/17 05:35 ALT 14 units/L (7-56) 11/03/17 05:35 Alkaline Phosphatase 62 units/L (35-129) 11/03/17 05:35 Total Creatine Kinase 246 units/L (55-170) H 11/02/17 Unknown CK-MB (CK-2) 3.7 ng/mL (0.0-4.0) 11/02/17 Unknown CK-MB (CK-2) Rel Index 1.5 (0-4) 11/02/17 Unknown Troponin T < 0.010 ng/mL (0.00-0.029) 11/03/17 07:52 Total Protein 6.4 g/dL (6.3-8.2) 11/03/17 05:35 Albumin 3.2 g/dL (3.9-5) L 11/03/17 05:35 Albumin/Globulin Ratio 1.0 % 11/03/17 05:35 Triglycerides 54 mg/dL (2-149) 11/02/17 Unknown Cholesterol 135 mg/dL (50-199) 11/02/17 Unknown LDL Cholesterol Direct 63 mg/dL (50-130) 11/02/17 Unknown HDL Cholesterol 62 mg/dL (40-59) H 11/02/17 Unknown Cholesterol/HDL Ratio 2.17 % 11/02/17 Unknown Urine Color Yellow (Yellow) 11/02/17 14:28 Urine Turbidity Clear (Clear) 11/02/17 14:28 Urine pH 6.0 (5.0-7.0) 11/02/17 14:28 Ur Specific [place] 1.018 (1.003-1.030) 11/02/17 14:28 Urine Protein 30 mg/dl mg/dL (Negative) 11/02/17 14:28 Urine Glucose (UA) 50 mg/dL (Negative) 11/02/17 14:28 Urine Ketones Tr mg/dL (Negative) 11/02/17 14:28 Urine Blood Lg (Negative) 11/02/17 14:28 Urine Nitrite Neg (Negative) 11/02/17 14:28 Urine Bilirubin Neg (Negative) 11/02/17 14:28 Urine Urobilinogen 4.0 mg/dL (<2.0) 11/02/17 14:28 Ur Leukocyte Esterase Neg (Negative) 11/02/17 14:28 Urine WBC (Auto) 12.0 /HPF (0.0-6.0) H 11/02/17 14:28 Urine RBC (Auto) 63.0 /HPF (0.0-6.0) 11/02/17 14:28 U Epithel Cells (Auto) 1.0 /HPF (0-13.0) 11/02/17 14:28 Hyaline Casts 1 /LPF 11/02/17 14:28 Urine Mucus 1+ /HPF 11/02/17 14:28
[2017-11-04] MEDS: cefTRIAXone 1 GM in NACL 0.9% 20 ML IV SCH (16:58)
--- NOTE | 2017-11-04 18:03 | Consultation ---
History of Present Illness Consult date: 11/04/17 History of present illness: see my dictated note do believe this is Lewy Body Dementia no evidence of new stroke hypotension may need to be addressed but is cardinal symptom of this disorder Medications and Allergies Allergies Allergy/AdvReac Type Severity Reaction Status Date / Time No Known Allergies Allergy Unverified 02/15/17 10:29 Home Medications Medication Instructions Recorded Confirmed Last Taken Type Aspirin [Aspirin EC] 81 mg PO DAILY 11/02/17 11/02/17 11/01/17 History FLUoxetine HCL [PROzac] 40 mg PO QDAY 11/02/17 11/02/17 11/01/17 History Hydrochlorothiazide [HCTZ] 25 mg PO QDAY 11/02/17 11/02/17 11/01/17 History Lisinopril [Zestril TAB] 10 mg PO QDAY 11/02/17 11/02/17 11/01/17 History risperiDONE [Risperdal] 0.5 mg PO QHS 11/02/17 11/02/17 11/01/17 History Active Meds: Active Medications Amlodipine Besylate (Norvasc) 10 mg PO QDAY [facility] Last Admin: 11/04/17 10:40 Dose: 10 mg Aspirin (Halfprin Ec) 81 mg PO DAILY [facility] Last Admin: 11/04/17 10:42 Dose: 81 mg Fluoxetine HCl (Prozac) 40 mg PO QDAY [facility] Last Admin: 11/04/17 10:42 Dose: 40 mg Potassium Chloride/Dextrose/Sod Cl (D5w/0.45% Nacl/Kcl 10 Meq) 10 meq in 1,000 mls @ 100 mls/hr IV DIRECT [facility] Last Admin: 11/04/17 16:54 Dose: 100 mls/hr Ceftriaxone Sodium 1 gm/ (Sodium Chloride) 20 mls @ 20 mls/10 min IV Q24H [facility] Last Admin: 11/04/17 16:58 Dose: 20 mls/10 min Risperidone (Risperdal) 0.5 mg PO HS [facility] Last Admin: 11/03/17 22:10 Dose: 0.5 mg Physical Examination - Vital Signs Vital Signs: Vital Signs Temp Pulse Resp BP Pulse Ox 98 F 90 20 60/30 97 11/02/17 12:31 11/02/17 12:31 11/02/17 12:31 11/02/17 12:31 11/02/17 12:31 Results - Laboratory Findings CBC and BMP: 11/04/17 06:15 11/04/17 06:15 Abnormal Lab Findings: Abnormal Labs 11/02/17 11/02/17 11/02/17 14:28 Unknown Unknown RBC Hgb Hct Lymph % (Auto) 7.4 L [place] % (Auto) Lymph # 0.7 L [place] # Seg Neutrophils % 84.9 H Seg Neutrophils # 8.6 H PT 15.2 H INR 1.14 H Thrombin Time Sodium Potassium Chloride BUN Creatinine Glucose Calcium Total Creatine Kinase Troponin T Albumin HDL Cholesterol Urine WBC (Auto) 12.0 H 11/02/17 11/02/17 11/02/17 Unknown Unknown Unknown RBC Hgb Hct Lymph % (Auto) [place] % (Auto) Lymph # [place] # Seg Neutrophils % Seg Neutrophils # PT INR Thrombin Time 14.6 L Sodium Potassium 3.5 L Chloride 94.7 L BUN 44 H Creatinine 2.0 H Glucose 135 H Calcium Total Creatine Kinase 246 H Troponin T 0.031 H Albumin HDL Cholesterol 62 H Urine WBC (Auto) 11/03/17 11/03/17 11/03/17 05:35 05:35 16:18 RBC 3.30 L Hgb 10.1 L 10.2 L Hct 29.3 L D 31.5 L Lymph % (Auto) [place] % (Auto) 10.1 H Lymph # [place] # 1.1 H Seg Neutrophils % 73.3 H Seg Neutrophils # 7.8 H PT INR Thrombin Time Sodium Potassium Chloride BUN 31 H Creatinine Glucose 112 H Calcium Total Creatine Kinase Troponin T Albumin 3.2 L HDL Cholesterol Urine WBC (Auto) 11/04/17 11/04/17 06:15 06:15 RBC 3.27 L Hgb 10.0 L Hct 29.2 L Lymph % (Auto) [place] % (Auto) Lymph # [place] # Seg Neutrophils % Seg Neutrophils # PT INR Thrombin Time Sodium 136 L Potassium 3.5 L Chloride BUN Creatinine Glucose 110 H Calcium 8.3 L Total Creatine Kinase Troponin T Albumin HDL Cholesterol Urine WBC (Auto)
[2017-11-04] MEDS: RisperDAL PO SCH (22:28)
--- NOTE | 2017-11-05 02:39 | Consultation ---
HISTORY OF PRESENT ILLNESS: This is a 62-year-old black male that presents with a history of muscle cramps, hallucinations, had a prior medical history of hypertension, Lewy body dementia and psychosis, presented to the Emergency Room with diminished food intake, was confused, had significant progression of his dementia, was not able to follow commands. Had previously been on Aricept since August. The daughter did not feel that this was helping and may be contributing to his symptoms and therefore the medicine was discontinued on 10/30. The patient did not receive any blood pressure medications on the day of admission. When he presented to the Emergency Room, his blood pressure was low at 80/46 and previous to that was also markedly reduced. He had renal insufficiency, urinary tract infection, hypokalemia, as well as Lewy body dementia. My personal review of his head CT shows evidence of actually very little in the way of atrophy. The ventricular system is normal in size and shape. The structures at the base of the brain are unremarkable. The brainstem has normal appearance, although one might argue that there is some loss of cell definition in the centrum of the todd. I do not think that this is very conspicuous on the CAT scan and therefore this CT is definitely compatible with Lewy body given his current appearance. My formal examination does show him to be alert. He cannot respond to simple questions. He is unable to speak, but is relatively pleasant, but cannot follow simple commands. Certainly, I believe that this diagnosis is probably Lewy body dementia, not surprised Aricept did work. Very few medicines are effective to this condition as far as the issues with seizures and hallucinations and psychosis. I would have generally found that antipsychotic agents even the atypicals are very useful in these patients. At times, I have had some success with using the atypical anti-seizure medicine, Briviact. I would not restart the Aricept at this point. I will further monitor his blood pressure to make sure that this may need to be treated as the drop in blood pressure is an autonomic instability. It is the same disorder seen in combined system degeneration and this sometimes can be treated with the same medications used to treat Parkinson's associated hypotension. JOB# [id number] CITLALI/NTS
[2017-11-05] MEDS: D5W/0.45% NACL/KCL 10 MEQ 10 MEQ/1,000 ML BAG IV SCH ×2 (03:41→21:41)
[2017-11-05] MEDS: HALFPRIN EC PO SCH (10:36)
[2017-11-05] MEDS: PROzac PO SCH (10:36)
[2017-11-05] MEDS: NORVASC PO SCH (10:36)
[2017-11-05] MEDS: cefTRIAXone 1 GM in NACL 0.9% 20 ML IV SCH (18:07)
--- NOTE | 2017-11-05 18:19 | Progress Note ---
Assessment and Plan Patient is a 62-year-old man from home with history of hypertension in Lewy body dementia who presented with syncopal episode and cooperative behavior. -Acute metabolic encephalopathy with dehydration: IV hydration - Hypotension: Will hold amlodipine -Lewy body dementia with autonomic dysfunction is a poor prognostic sign: Neurology following. Input appreciated -Syncope, autonomic dysfunction: Conservative management -UTI: abx, No growth so far on Cx -TOMY, vasomotor nephropathy, poa: resolved DVT Prophylaxis with heparin Subjective Date of service: 11/05/17 Principal diagnosis: Autonomic dyscfunction, lewy body dementia Interval history: Patient lying in bed. Drowsy. Restrained. Objective - Constitutional Vitals: Vital Signs - 12hr 11/05/17 11/05/17 11/05/17 08:00 08:27 13:16 Temperature 97.9 F Pulse Rate 79 82 78 Respiratory 18 18 Rate Blood Pressure 120/65 Blood Pressure 97/61 [Left] O2 Sat by Pulse 98 99 Oximetry General appearance: Present: no acute distress, well-nourished - EENT Eyes: PERRL, EOM intact - Neck Neck: supple, normal ROM - Respiratory Respiratory effort: normal Respiratory: bilateral: CTA - Cardiovascular Rhythm: regular Heart Sounds: Present: S1 & S2. Absent: gallop, rub Extremities: pulses intact, No edema, normal color, Full ROM - Gastrointestinal General gastrointestinal: Present: soft, non-tender, non-distended, normal bowel sounds - Integumentary Integumentary: clear, warm, dry - Musculoskeletal Musculoskeletal: 1, strength equal bilaterally - Neurologic Neurologic: moves all extremities - Psychiatric Psychiatric: other (flat affect, unable to hold any conversation) - Labs CBC & Chem 7: 11/04/17 06:15 11/04/17 06:15
[2017-11-05] MEDS ORDERED: K-DUR PO ONE (21:15)
[2017-11-05] MEDS: RisperDAL PO SCH (21:40)
[2017-11-06 06:44] LABS: Basophils % (Auto) 0.3 % (0.0-1.8); Eosinophils # (Auto) 0.2 K/mm3 (0.0-0.4); Eosinophils % (Auto) 2.3 % (0.0-4.3); Hematocrit 29.4 % (35.5-45.6); Hemoglobin 10.1 gm/dl (11.8-15.2); Lymphocytes # (Auto) 0.7 K/mm3 (1.2-5.4); Lymphocytes % (Auto) 9.6 % (13.4-35.0); Mean Corpuscular HGB Conc 35 % (32-34); Mean Corpuscular Hemoglobin 30 pg (28-32); Mean Corpuscular Volume 88 fl (84-94); Monocytes # (Auto) 0.9 K/mm3 (0.0-0.8); Monocytes % (Auto) 11.5 % (0.0-7.3); Platelet Count 194 K/mm3 (140-440); Red Blood Count 3.33 M/mm3 (3.65-5.03); Red Cell Distribution Width 13.6 % (13.2-15.2)
[2017-11-06 06:59] LABS: Alanine Aminotransferase 34 units/L (7-56); Albumin 2.8 g/dL (3.9-5); BUN/Creatinine Ratio 10; Blood Urea Nitrogen 7 mg/dL (9-20); Calcium 8.3 mg/dL (8.4-10.2); Hemolysis Index 7
[2017-11-06] MEDS: HALFPRIN EC PO SCH (11:05)
[2017-11-06] MEDS: NORVASC PO SCH (11:05)
[2017-11-06] MEDS: PROzac PO SCH (11:05)
--- NOTE | 2017-11-06 11:22 | Consultation ---
History of Present Illness - Reason for Consult Consult date: 11/06/17 Reason for consult: Mental Health Evaluation Requesting physician: SIMI GAYTAN - Chief Complaint Chief complaint: "Patient is confused" - History of Present Psychiatric Illness 62-year-old male with a past medical history hypertension, Lewy body dementia, and psychosis presents to the hospital with multiple episodes of syncope and increased episodes of combative behavior. Psychiatry was consulted to manage patient agitation. Today patient is calm during the assessment. He was able to state his name, but could not ID the current/past [place] President nor recall numbers within 5 mins. Per his assigned RN, no behavioral disturbances overnight. No gestures of SI/HI's. Medications and Allergies Allergies Allergy/AdvReac Type Severity Reaction Status Date / Time No Known Allergies Allergy Unverified 02/15/17 10:29 Home Medications Medication Instructions Recorded Confirmed Last Taken Type Aspirin [Aspirin EC] 81 mg PO DAILY 11/02/17 11/02/17 11/01/17 History FLUoxetine HCL [PROzac] 40 mg PO QDAY 11/02/17 11/02/17 11/01/17 History Hydrochlorothiazide [HCTZ] 25 mg PO QDAY 11/02/17 11/02/17 11/01/17 History Lisinopril [Zestril TAB] 10 mg PO QDAY 11/02/17 11/02/17 11/01/17 History risperiDONE [Risperdal] 0.5 mg PO QHS 11/02/17 11/02/17 11/01/17 History Active Meds: Active Medications Amlodipine Besylate (Norvasc) 10 mg PO QDAY [facility] Last Admin: 11/06/17 11:05 Dose: 10 mg Aspirin (Halfprin Ec) 81 mg PO DAILY [facility] Last Admin: 11/06/17 11:05 Dose: 81 mg Fluoxetine HCl (Prozac) 40 mg PO QDAY [facility] Last Admin: 11/06/17 11:05 Dose: 40 mg Potassium Chloride/Dextrose/Sod Cl (D5w/0.45% Nacl/Kcl 10 Meq) 10 meq in 1,000 mls @ 100 mls/hr IV DIRECT [facility] Last Admin: 11/05/17 21:41 Dose: 100 mls/hr Ceftriaxone Sodium 1 gm/ (Sodium Chloride) 20 mls @ 20 mls/10 min IV Q24H [facility] Last Admin: 11/05/17 18:07 Dose: 20 mls/10 min Risperidone (Risperdal) 0.5 mg PO HS [facility] Last Admin: 11/05/17 21:40 Dose: 0.5 mg Past psychiatric history - Past Medical History Past Medical History: hypertension Past Surgical History: No surgical history - past Psychiatric treatment and history psychiatric treatment history: Unable to obtain a psy hx and fam psy hx. - Social History Social history: other (Unable to obtain) Mental Status Exam - Vital signs Last Vital Signs Temp 99.1 F 11/06/17 09:51 Pulse 83 11/06/17 09:51 Resp 16 11/06/17 09:51 BP 108/64 11/06/17 09:51 Pulse Ox 97 11/06/17 09:51 - Exam Narrative exam: MSE: Appearance: calm Behavior: poor eye contact Speech: regular rate and tone Mood: unable to assess Affect: flat Thought Process: unable to assess Thought Content: no gestures of SI/HI's and AVH's Motor Activity: lying in bed Cognition: confused Insight: limited Judgment: limited Results Result Diagrams: 11/06/17 06:27 11/06/17 06:27 Abnormal lab results 11/04/17 11/06/17 11/06/17 Range/Units 09:08 06:27 06:27 RBC 3.33 L (3.65-5.03) M/mm3 Hgb 10.1 L (11.8-15.2) gm/dl Hct 29.4 L (35.5-45.6) % MCHC 35 H (32-34) % Lymph % (Auto) 9.6 L (13.4-35.0) % [place] % (Auto) 11.5 H (0.0-7.3) % Lymph # 0.7 L (1.2-5.4) K/mm3 [place] # 0.9 H (0.0-0.8) K/mm3 Seg Neutrophils % 76.3 H (40.0-70.0) % Sodium 133 L (137-145) mmol/L BUN 7 L (9-20) mg/dL Creatinine 0.7 L (0.8-1.5) mg/dL POC Glucose 107 H (70-105) Calcium 8.3 L (8.4-10.2) mg/dL Total Protein 6.2 L (6.3-8.2) g/dL Albumin 2.8 L (3.9-5) g/dL All other labs normal. Assessment and Plan Assessment and plan: Impression: Lewy Body Dementia. Today patient is calm during the assessment. Patient is restraints. Medical: Acute Metabolic Encephalopathy with dehydration Recommendation/Plan: Continue home medications (Prozac and Risperdal). Gather collateral information to help determine proper dispo. Neuro is following patient. Recommend the following precautions below: 1. Frequently reorient patient and involve him/her in their care (simple explanations of procedures, tests, medications). 2. Lights on and shades open during daytime hours. 3. Try to avoid unnecessary interruptions to sleep during nighttime hours. 4. Obtain glasses, hearing aids from home if patient uses these at baseline. 5. Avoid medications that may exacerbate delirium (especially narcotics, barbiturates, ambien, lunesta, benzos, and medications with excessive anticholinergic properties). Recommend an alternative medications for pain if possible. 6. Recommend 1:1 sitter for safety. 7. D/C restraints when not indicated. 8. Use Haldol 2 mg IM Q6hrs PRN for acute agitation.
[2017-11-06] MEDS: cefTRIAXone 1 GM in NACL 0.9% 20 ML IV SCH (17:00)
--- NOTE | 2017-11-06 19:17 | Consultation ---
History of Present Illness Consult date: 11/06/17 History of present illness: BP is up quite well therefore not in favor of starting alpha agonists these are not very effective in this disorder meds at this time are effective for agitation and hallucinations condition has stabilized I will follow up Thanks Past History Past Medical History: hypertension Past Surgical History: No surgical history Social history: other (Unable to obtain) Medications and Allergies Allergies Allergy/AdvReac Type Severity Reaction Status Date / Time No Known Allergies Allergy Unverified 02/15/17 10:29 Home Medications Medication Instructions Recorded Confirmed Last Taken Type Aspirin [Aspirin EC] 81 mg PO DAILY 11/02/17 11/02/17 11/01/17 History FLUoxetine HCL [PROzac] 40 mg PO QDAY 11/02/17 11/02/17 11/01/17 History Hydrochlorothiazide [HCTZ] 25 mg PO QDAY 11/02/17 11/02/17 11/01/17 History Lisinopril [Zestril TAB] 10 mg PO QDAY 11/02/17 11/02/17 11/01/17 History risperiDONE [Risperdal] 0.5 mg PO QHS 11/02/17 11/02/17 11/01/17 History Active Meds: Active Medications Amlodipine Besylate (Norvasc) 10 mg PO QDAY [facility] Last Admin: 11/06/17 11:05 Dose: 10 mg Aspirin (Halfprin Ec) 81 mg PO DAILY [facility] Last Admin: 11/06/17 11:05 Dose: 81 mg Fluoxetine HCl (Prozac) 40 mg PO QDAY [facility] Last Admin: 11/06/17 11:05 Dose: 40 mg Potassium Chloride/Dextrose/Sod Cl (D5w/0.45% Nacl/Kcl 10 Meq) 10 meq in 1,000 mls @ 100 mls/hr IV DIRECT [facility] Last Admin: 11/05/17 21:41 Dose: 100 mls/hr Ceftriaxone Sodium 1 gm/ (Sodium Chloride) 20 mls @ 20 mls/10 min IV Q24H [facility] Last Admin: 11/06/17 17:00 Dose: 20 mls/10 min Risperidone (Risperdal) 0.5 mg PO HS [facility] Last Admin: 11/05/17 21:40 Dose: 0.5 mg Physical Examination - Vital Signs Vital Signs: Vital Signs Temp Pulse Resp BP Pulse Ox 98 F 90 20 60/30 97 01/09/18 12:31 11/02/17 12:31 11/02/17 12:31 11/02/17 12:31 11/02/17 12:31 Results - Laboratory Findings CBC and BMP: 11/06/17 06:27 11/06/17 06:27 Abnormal Lab Findings: Abnormal Labs 11/02/17 11/02/17 11/02/17 14:28 Unknown Unknown RBC Hgb Hct MCHC Lymph % (Auto) 7.4 L [place] % (Auto) Lymph # 0.7 L [place] # Seg Neutrophils % 84.9 H Seg Neutrophils # 8.6 H PT 15.2 H INR 1.14 H Thrombin Time Sodium Potassium Chloride BUN Creatinine Glucose POC Glucose Calcium Total Creatine Kinase Troponin T Total Protein Albumin HDL Cholesterol Urine WBC (Auto) 12.0 H 11/02/17 11/02/17 11/02/17 Unknown Unknown Unknown RBC Hgb Hct MCHC Lymph % (Auto) [place] % (Auto) Lymph # [place] # Seg Neutrophils % Seg Neutrophils # PT INR Thrombin Time 14.6 L Sodium Potassium 3.5 L Chloride 94.7 L BUN 44 H Creatinine 2.0 H Glucose 135 H POC Glucose Calcium Total Creatine Kinase 246 H Troponin T 0.031 H Total Protein Albumin HDL Cholesterol 62 H Urine WBC (Auto) 11/03/17 11/03/17 11/03/17 05:35 05:35 16:18 RBC 3.30 L Hgb 10.1 L 10.2 L Hct 29.3 L D 31.5 L MCHC Lymph % (Auto) [place] % (Auto) 10.1 H Lymph # [place] # 1.1 H Seg Neutrophils % 73.3 H Seg Neutrophils # 7.8 H PT INR Thrombin Time Sodium Potassium Chloride BUN 31 H Creatinine Glucose 112 H POC Glucose Calcium Total Creatine Kinase Troponin T Total Protein Albumin 3.2 L HDL Cholesterol Urine WBC (Auto) 11/04/17 11/04/17 11/04/17 06:15 06:15 09:08 RBC 3.27 L Hgb 10.0 L Hct 29.2 L MCHC Lymph % (Auto) [place] % (Auto) Lymph # [place] # Seg Neutrophils % Seg Neutrophils # PT INR Thrombin Time Sodium 136 L Potassium 3.5 L Chloride BUN Creatinine Glucose 110 H POC Glucose 107 H Calcium 8.3 L Total Creatine Kinase Troponin T Total Protein Albumin HDL Cholesterol Urine WBC (Auto) 11/06/17 11/06/17 06:27 06:27 RBC 3.33 L Hgb 10.1 L Hct 29.4 L MCHC 35 H Lymph % (Auto) 9.6 L [place] % (Auto) 11.5 H Lymph # 0.7 L [place] # 0.9 H Seg Neutrophils % 76.3 H Seg Neutrophils # PT INR Thrombin Time Sodium 133 L Potassium Chloride BUN 7 L Creatinine 0.7 L Glucose POC Glucose Calcium 8.3 L Total Creatine Kinase Troponin T Total Protein 6.2 L Albumin 2.8 L HDL Cholesterol Urine WBC (Auto)
--- NOTE | 2017-11-06 19:46 | Progress Note ---
Assessment and Plan Patient is a 62-year-old man from home with history of hypertension in Lewy body dementia who presented with syncopal episode and cooperative behavior. -Acute metabolic encephalopathy with dehydration: IV hydration - Hypotension: Will hold amlodipine -Lewy body dementia with autonomic dysfunction is a poor prognostic sign: Neurology following. Input appreciated -Syncope, autonomic dysfunction: Conservative management -UTI: abx, No growth so far on Cx -TOMY, vasomotor nephropathy, poa: resolved DVT Prophylaxis with heparin Disposition: Awaiting placement Subjective Date of service: 11/06/17 Principal diagnosis: Autonomic dyscfunction, lewy body dementia Interval history: Patient lying in bed. Awake but nonviable. Restrained. Objective - Exam Narrative Exam: Constitutional: Well-nourished well-developed. In no distress Head: Normocephalic atraumatic Eyes: Pupils are equal round and reactive to light Nose: No enlarged turbinates, no septal deviation. Mouth: Moist mucous membranes. Neck: Supple no thyromegaly. No bruit. No JVD Heart: Regular rate and rhythm, S1-S2 abnormal. No rubs murmurs or gallop Lungs: Clear to auscultation bilaterally no rales or rhonchi Abdomen: Soft, nontender. Bowel sound are present. Extremities: No edema no cyanosis and no clubbing. Neuro: 2-12th cranial nerves grossly intact Confused. Not following commands Skin: No rashes no hyperemic spots Psychiatry: Awake Nonviable. She continues - Constitutional Vitals: Vital Signs - 12hr 11/06/17 11/06/17 08:49 09:51 Temperature 99.1 F Pulse Rate 82 83 Respiratory 16 Rate Blood Pressure 108/64 O2 Sat by Pulse 97 Oximetry - Labs CBC & Chem 7: 11/06/17 06:27 11/06/17 06:27 Labs: Abnormal lab results 11/04/17 11/06/17 11/06/17 Range/Units 09:08 06:27 06:27 RBC 3.33 L (3.65-5.03) M/mm3 Hgb 10.1 L (11.8-15.2) gm/dl Hct 29.4 L (35.5-45.6) % MCHC 35 H (32-34) % Lymph % (Auto) 9.6 L (13.4-35.0) % [place] % (Auto) 11.5 H (0.0-7.3) % Lymph # 0.7 L (1.2-5.4) K/mm3 [place] # 0.9 H (0.0-0.8) K/mm3 Seg Neutrophils % 76.3 H (40.0-70.0) % Sodium 133 L (137-145) mmol/L BUN 7 L (9-20) mg/dL Creatinine 0.7 L (0.8-1.5) mg/dL POC Glucose 107 H (70-105) Calcium 8.3 L (8.4-10.2) mg/dL Total Protein 6.2 L (6.3-8.2) g/dL Albumin 2.8 L (3.9-5) g/dL
[2017-11-06] MEDS: RisperDAL PO SCH (23:03)
[2017-11-07] MEDS: D5W/0.45% NACL/KCL 10 MEQ 10 MEQ/1,000 ML BAG IV SCH (00:43)
[2017-11-07] MEDS: NORVASC PO SCH (12:57)
[2017-11-07] MEDS: HALFPRIN EC PO SCH (12:57)
[2017-11-07] MEDS: PROzac PO SCH (12:57)
--- NOTE | 2017-11-07 17:27 | Progress Note ---
Assessment and Plan Patient is a 62-year-old man from home with history of hypertension in Lewy body dementia who presented with syncopal episode and cooperative behavior. -Acute metabolic encephalopathy with dehydration: IV hydration - Hypotension: Will hold amlodipine -Lewy body dementia with autonomic dysfunction is a poor prognostic sign: Neurology following. Input appreciated -Syncope, autonomic dysfunction: Conservative management -UTI: abx, No growth so far on Cx -TOMY, vasomotor nephropathy, poa: resolved DVT Prophylaxis with heparin Disposition: Awaiting placement Subjective Date of service: 11/07/17 Principal diagnosis: Autonomic dyscfunction, lewy body dementia Interval history: Patient lying in bed. Awake. Answers question with very poor cognitive function. Restrained. Objective - Exam Narrative Exam: Constitutional: Well-nourished well-developed. In no distress Head: Normocephalic atraumatic Eyes: Pupils are equal round and reactive to light Nose: No enlarged turbinates, no septal deviation. Mouth: Moist mucous membranes. Neck: Supple no thyromegaly. No bruit. No JVD Heart: Regular rate and rhythm, S1-S2 abnormal. No rubs murmurs or gallop Lungs: Clear to auscultation bilaterally no rales or rhonchi Abdomen: Soft, nontender. Bowel sound are present. Extremities: No edema no cyanosis and no clubbing. Neuro: 2-12th cranial nerves grossly intact. Confused. Not following commands Skin: No rashes no hyperemic spots Psychiatry: Awake Nonviable. She continues - Constitutional Vitals: Vital Signs - 12hr 11/07/17 11/07/17 11/07/17 05:26 07:56 07:57 Temperature 98.5 F 100.5 F H Pulse Rate 75 83 85 Respiratory 18 Rate Blood Pressure 124/61 124/61 Blood Pressure 96/52 [Left] O2 Sat by Pulse 96 95 Oximetry 11/07/17 10:00 Temperature Pulse Rate 77 Respiratory Rate Blood Pressure Blood Pressure [Left] O2 Sat by Pulse Oximetry - Labs CBC & Chem 7: 11/06/17 06:27 11/06/17 06:27
[2017-11-07] MEDS: cefTRIAXone 1 GM in NACL 0.9% 20 ML IV SCH (17:51)
[2017-11-07] MEDS: RisperDAL PO SCH (22:11)
[2017-11-08] MEDS: HALFPRIN EC PO SCH (09:24)
[2017-11-08] MEDS: NORVASC PO SCH (09:24)
[2017-11-08] MEDS: PROzac PO SCH (09:25)
--- NOTE | 2017-11-08 09:27 | Progress Note ---
Subjective - Reason for Consult Consult date: 11/08/17 Reason for consult: Psychiatry Follow-up - Chief Complaint Chief complaint: "Hello" 62-year-old male with a past medical history hypertension, Lewy body dementia, and psychosis presents to the hospital with multiple episodes of syncope and increased episodes of combative behavior. Today the patient is calm, but still confused during the assessment. He was observed feeding himself breakfast. Per the staff, no behavioral disturbance overnight. No gestures of SI/HI's. Mental Status Exam - Vital signs Last Vital Signs Temp 100.4 F H 11/08/17 04:45 Pulse 97 H 11/08/17 04:45 Resp 20 11/08/17 04:45 BP 109/70 11/08/17 04:45 Pulse Ox 96 11/08/17 04:45 - Exam Narrative exam: MSE: Appearance: calm Behavior: regular eye contact Speech: regular rate and tone Mood: unable to assess Affect: flat Thought Process: unable to assess Thought Content: no gestures of SI/HI's and AVH's Motor Activity: lying in bed Cognition: confused Insight: limited Judgment: limited Assessment and Plan Impression: Lewy Body Dementia. Today patient is calm during the assessment. Medical: Acute Metabolic Encephalopathy with dehydration Recommendation/Plan: Continue home medications (Prozac and Risperdal). Patient is pending placement. Neuro is following patient. Recommend the following precautions below: 1. Frequently reorient patient and involve him/her in their care (simple explanations of procedures, tests, medications). 2. Lights on and shades open during daytime hours. 3. Try to avoid unnecessary interruptions to sleep during nighttime hours. 4. Obtain glasses, hearing aids from home if patient uses these at baseline. 5. Avoid medications that may exacerbate delirium (especially narcotics, barbiturates, ambien, lunesta, benzos, and medications with excessive anticholinergic properties). 6. Recommend 1:1 sitter for safety. 7. Use Haldol 2 mg IM Q6hrs PRN for acute agitation.
[2017-11-08] MEDS: cefTRIAXone 1 GM in NACL 0.9% 20 ML IV SCH (17:35)
--- NOTE | 2017-11-08 18:22 | Progress Note ---
Assessment and Plan Patient is a 62-year-old man from home with history of hypertension in Lewy body dementia who presented with syncopal episode and cooperative behavior. -Acute metabolic encephalopathy with dehydration: IV hydration - Hypotension: Will hold amlodipine -Lewy body dementia with autonomic dysfunction is a poor prognostic sign: Neurology following. Input appreciated -Syncope, autonomic dysfunction: Conservative management -UTI: abx, No growth so far on Cx -TOMY, vasomotor nephropathy, poa: resolved DVT Prophylaxis with heparin Disposition: Awaiting placement Subjective Date of service: 11/08/17 Principal diagnosis: Autonomic dyscfunction, lewy body dementia Interval history: Patient lying in bed. Awake. Answers question with very poor cognitive function. Restrained. Objective - Exam Narrative Exam: Constitutional: Well-nourished well-developed. In no distress Head: Normocephalic atraumatic Eyes: Pupils are equal round and reactive to light Nose: No enlarged turbinates, no septal deviation. Mouth: Moist mucous membranes. Neck: Supple no thyromegaly. No bruit. No JVD Heart: Regular rate and rhythm, S1-S2 abnormal. No rubs murmurs or gallop Lungs: Clear to auscultation bilaterally no rales or rhonchi Abdomen: Soft, nontender. Bowel sound are present. Extremities: No edema no cyanosis and no clubbing. Neuro: 2-12th cranial nerves grossly intact. Confused. Not following commands Skin: No rashes no hyperemic spots Psychiatry: Awake Nonviable. She continues - Constitutional Vitals: Vital Signs - 12hr 11/08/17 11/08/17 11/08/17 08:08 13:32 15:58 Temperature 100.2 F H 99.1 F Pulse Rate 89 102 H Pulse Rate [ 80 From Monitor] Respiratory 20 18 18 Rate Blood Pressure 103/60 89/56 O2 Sat by Pulse 94 96 Oximetry 11/08/17 18:01 Temperature Pulse Rate 100 H Pulse Rate [ From Monitor] Respiratory Rate Blood Pressure O2 Sat by Pulse Oximetry - Labs CBC & Chem 7: 11/06/17 06:27 11/06/17 06:27
[2017-11-08] MEDS: RisperDAL PO SCH (22:55)
[2017-11-09] MEDS: D5W/0.45% NACL/KCL 10 MEQ 10 MEQ/1,000 ML BAG IV SCH (05:55)
--- NOTE | 2017-11-09 09:50 | Progress Note ---
Subjective - Reason for Consult Consult date: 11/09/17 Reason for consult: Psychiatry Follow-up - Chief Complaint Chief complaint: "Hello" 62-year-old male with a past medical history hypertension, Lewy body dementia, and psychosis presents to the hospital with multiple episodes of syncope and increased episodes of combative behavior. Today the patient is calm, but still confused during the assessment. No gestures of SI/HI's. Mental Status Exam - Vital signs Last Vital Signs Temp 99.6 F 11/09/17 04:28 Pulse 69 11/09/17 04:28 Resp 18 11/09/17 04:28 BP 99/63 11/09/17 04:28 Pulse Ox 97 11/09/17 04:28 - Exam Narrative exam: MSE: Appearance: calm Behavior: regular eye contact Speech: regular rate and tone Mood: unable to assess Affect: flat Thought Process: unable to assess Thought Content: no gestures of SI/HI's and AVH's Motor Activity: lying in bed Cognition: confused Insight: limited Judgment: limited Assessment and Plan Impression: Lewy Body Dementia. Today patient is calm during the assessment. Medical: Acute Metabolic Encephalopathy with dehydration Recommendation/Plan: Continue home medications (Prozac and Risperdal). Patient is pending placement, per [employer] Administrator. Neuro is following patient. Recommend the following precautions below: 1. Frequently reorient patient and involve him/her in their care (simple explanations of procedures, tests, medications). 2. Lights on and shades open during daytime hours. 3. Try to avoid unnecessary interruptions to sleep during nighttime hours. 4. Obtain glasses, hearing aids from home if patient uses these at baseline. 5. Avoid medications that may exacerbate delirium (especially narcotics, barbiturates, ambien, lunesta, benzos, and medications with excessive anticholinergic properties). 6. Recommend 1:1 sitter for safety. 7. Use Haldol 2 mg IM Q6hrs PRN for acute agitation.
--- NOTE | 2017-11-09 10:46 | Progress Note ---
Assessment and Plan Assessment and plan: Patient is a 62-year-old man from home with history of hypertension in Lewy body dementia who presented with syncopal episode -Acute metabolic encephalopathy with dehydration: IV hydration - Hypotension: Amlodipine on hold -Lewy body dementia with autonomic dysfunction is a poor prognostic sign: Neurology following. Input appreciated -Syncope, autonomic dysfunction: Conservative management -UTI: abx, No growth so far on Cx -TMOY, vasomotor nephropathy, poa: resolved DVT Prophylaxis with heparin Disposition: Awaiting placement History Interval history: No new events Hospitalist Physical - Physical exam Narrative exam: Gen Appearance: Not in acute distress HEENT: Normocephalic, atraumatic Lungs:Clear to auscultation bilaterally, no crackles or wheeze Heart :S1 and S2 regular, no murmurs, rubs or gallop Abdomen: Soft, non-tender, non distended, Normal bowel sounds Extremities no edema clubbing no cyanosis, Neuro: Awake,alert, - Constitutional Vitals: Temp Pulse Resp BP Pulse Ox 98.3 F 81 24 95/55 100 11/09/17 08:41 11/09/17 08:41 11/09/17 08:41 11/09/17 08:41 11/09/17 08:41 General appearance: Present: well-nourished Results - Labs CBC & Chem 7: 11/06/17 06:27 11/06/17 06:27 Labs: Laboratory Last Values WBC 7.7 K/mm3 (4.5-11.0) 11/06/17 06:27 RBC 3.33 M/mm3 (3.65-5.03) L 11/06/17 06:27 Hgb 10.1 gm/dl (11.8-15.2) L 11/06/17 06:27 Hct 29.4 % (35.5-45.6) L 11/06/17 06:27 MCV 88 fl (84-94) 11/06/17 06:27 MCH 30 pg (28-32) 11/06/17 06:27 MCHC 35 % (32-34) H 11/06/17 06:27 RDW 13.6 % (13.2-15.2) 11/06/17 06:27 Plt Count 194 K/mm3 (140-440) 11/06/17 06:27 Lymph % (Auto) 9.6 % (13.4-35.0) L 11/06/17 06:27 [place] % (Auto) 11.5 % (0.0-7.3) H 11/06/17 06:27 Eos % (Auto) 2.3 % (0.0-4.3) 11/06/17 06:27 Baso % (Auto) 0.3 % (0.0-1.8) 11/06/17 06:27 Lymph # 0.7 K/mm3 (1.2-5.4) L 11/06/17 06:27 [place] # 0.9 K/mm3 (0.0-0.8) H 11/06/17 06:27 Eos # 0.2 K/mm3 (0.0-0.4) 11/06/17 06:27 Baso # 0.0 K/mm3 (0.0-0.1) 11/06/17 06:27 Seg Neutrophils % 76.3 % (40.0-70.0) H 11/06/17 06:27 Seg Neutrophils # 5.8 K/mm3 (1.8-7.7) 11/06/17 06:27 PT 15.2 Sec. (12.2-14.9) H 11/02/17 Unknown INR 1.14 (0.87-1.13) H 11/02/17 Unknown APTT 27.2 Sec. (24.2-36.6) 11/02/17 Unknown Thrombin Time 14.6 Sec. (15.1-19.6) L 11/02/17 Unknown VBG pH 7.340 (7.320-7.420) 11/02/17 18:10 Sodium 133 mmol/L (137-145) L 11/06/17 06:27 Potassium 3.9 mmol/L (3.6-5.0) 11/06/17 06:27 Chloride 98.0 mmol/L (98-107) 11/06/17 06:27 Carbon Dioxide 23 mmol/L (22-30) 11/06/17 06:27 Anion Gap 16 mmol/L 11/06/17 06:27 BUN 7 mg/dL (9-20) L 11/06/17 06:27 Creatinine 0.7 mg/dL (0.8-1.5) L 11/06/17 06:27 Estimated GFR > 60 ml/min 11/06/17 06:27 BUN/Creatinine Ratio 10 % 11/06/17 06:27 Glucose 99 mg/dL (75-100) 11/06/17 06:27 POC Glucose 127 (70-105) H 11/08/17 22:12 Lactic Acid 0.80 mmol/L (0.7-2.0) 11/02/17 18:10 Calcium 8.3 mg/dL (8.4-10.2) L 11/06/17 06:27 Magnesium 2.00 mg/dL (1.7-2.3) 11/03/17 05:35 Total Bilirubin 0.30 mg/dL (0.1-1.2) 11/06/17 06:27 AST 22 units/L (5-40) 11/06/17 06:27 ALT 34 units/L (7-56) 11/06/17 06:27 Alkaline Phosphatase 64 units/L (35-129) 11/06/17 06:27 Total Creatine Kinase 246 units/L (55-170) H 11/02/17 Unknown CK-MB (CK-2) 3.7 ng/mL (0.0-4.0) 11/02/17 Unknown CK-MB (CK-2) Rel Index 1.5 (0-4) 11/02/17 Unknown Troponin T < 0.010 ng/mL (0.00-0.029) 11/03/17 07:52 Total Protein 6.2 g/dL (6.3-8.2) L 11/06/17 06:27 Albumin 2.8 g/dL (3.9-5) L 11/06/17 06:27 Albumin/Globulin Ratio 0.8 % 11/06/17 06:27 Triglycerides 54 mg/dL (2-149) 11/02/17 Unknown Cholesterol 135 mg/dL (50-199) 11/02/17 Unknown LDL Cholesterol Direct 63 mg/dL (50-130) 11/02/17 Unknown HDL Cholesterol 62 mg/dL (40-59) H 11/02/17 Unknown Cholesterol/HDL Ratio 2.17 % 11/02/17 Unknown Urine Color Yellow (Yellow) 11/02/17 14:28 Urine Turbidity Clear (Clear) 11/02/17 14:28 Urine pH 6.0 (5.0-7.0) 11/02/17 14:28 Ur Specific [place] 1.018 (1.003-1.030) 11/02/17 14:28 Urine Protein 30 mg/dl mg/dL (Negative) 11/02/17 14:28 Urine Glucose (UA) 50 mg/dL (Negative) 11/02/17 14:28 Urine Ketones Tr mg/dL (Negative) 11/02/17 14:28 Urine Blood Lg (Negative) 11/02/17 14:28 Urine Nitrite Neg (Negative) 11/02/17 14:28 Urine Bilirubin Neg (Negative) 11/02/17 14:28 Urine Urobilinogen 4.0 mg/dL (<2.0) 11/02/17 14:28 Ur Leukocyte Esterase Neg (Negative) 11/02/17 14:28 Urine WBC (Auto) 12.0 /HPF (0.0-6.0) H 11/02/17 14:28 Urine RBC (Auto) 63.0 /HPF (0.0-6.0) 11/02/17 14:28 U Epithel Cells (Auto) 1.0 /HPF (0-13.0) 11/02/17 14:28 Hyaline Casts 1 /LPF 11/02/17 14:28 Urine Mucus 1+ /HPF 11/02/17 14:28
--- NOTE | 2017-11-09 10:49 | Discharge Summary ---
Providers - Providers Date of Admission: 11/02/17 16:26 Attending physician: CINDY MATT 11/02/17 19:51 Consult to Mental Health [CONS] Routine Reason For Exam: dementia with behavior disorder Place consult to:: Mental Health Notified:: Arminda RN Phone number called:: [phone]. [phone] Was contact made?: Yes If yes, spoke with:: Shaun-mental health Time called:: 08:04 11/03/17 10:40 Occupational Therapy Evaluate and Treat [CONS] Routine Comment: Reason For Exam: skill level for SNF Physical Therapy Evaluation and Treat [CONS] Routine Comment: Reason For Exam: skill level for snf 11/03/17 12:44 Consult to Physician [CONS] Routine Consulting Provider: LOUISE OSPINA Reason For Exam: AMS, lewy body dementia Place consult to:: Dr. Ospina Notified:: Arminda RN Phone number called:: Was contact made?: Yes If yes, spoke with:: Britni-Office Time called:: 15:12 11/03/17 17:10 Speech Therapy Evaluation and Treat [CONS] Routine Reason For Exam: swallow eval/diet recommendation 11/04/17 07:29 Consult to Wound/ET Nurse [CONS] Urgent Reason For Exam: wound eval Primary care physician: SCIENTIFIC RECRUITER Hospitalization Condition: Stable Core Measure Documentation - Palliative Care Palliative Care/ Comfort Measures: Not Applicable Exam - Constitutional Vitals: Temp Pulse Resp BP Pulse Ox 98.3 F 81 24 95/55 100 11/09/17 08:41 11/09/17 08:41 11/09/17 08:41 11/09/17 08:41 11/09/17 08:41 Plan Follow up with: PRIMARY MD JEREMY [Primary Care Provider] - 7 Days
[2017-11-09] MEDS: NORVASC PO SCH (14:46)
[2017-11-09] MEDS: PROzac PO SCH (14:46)
[2017-11-09] MEDS: HALFPRIN EC PO SCH (14:46)
[2017-11-09] MEDS: cefTRIAXone 1 GM in NACL 0.9% 20 ML IV SCH (16:30)
[2017-11-09] MEDS: RisperDAL PO SCH (22:45)
[2017-11-10] MEDS: HALFPRIN EC PO SCH (09:51)
[2017-11-10] MEDS: PROzac PO SCH (09:52)
[2017-11-10] MEDS: NORVASC PO SCH (09:52)
--- NOTE | 2017-11-10 15:56 | Consultation ---
History of Present Illness Consult date: 11/10/17 History of present illness: alert and responds to questions no agiation no seizures stable psyhosis from [facility] Disorder will follow Past History Past Medical History: hypertension Past Surgical History: No surgical history Social history: other (Unable to obtain) Medications and Allergies Allergies Allergy/AdvReac Type Severity Reaction Status Date / Time No Known Allergies Allergy Unverified 02/15/17 10:29 Home Medications Medication Instructions Recorded Confirmed Last Taken Type Aspirin [Aspirin EC] 81 mg PO DAILY 11/02/17 11/02/17 11/01/17 History FLUoxetine HCL [PROzac] 40 mg PO QDAY 11/02/17 11/02/17 11/01/17 History Hydrochlorothiazide [HCTZ] 25 mg PO QDAY 11/02/17 11/02/17 11/01/17 History Lisinopril [Zestril TAB] 10 mg PO QDAY 11/02/17 11/02/17 11/01/17 History risperiDONE [Risperdal] 0.5 mg PO QHS 11/02/17 11/02/17 11/01/17 History Active Meds: Active Medications Amlodipine Besylate (Norvasc) 10 mg PO QDAY [facility] Last Admin: 11/10/17 09:52 Dose: 10 mg Aspirin (Halfprin Ec) 81 mg PO DAILY [facility] Last Admin: 11/10/17 09:51 Dose: 81 mg Fluoxetine HCl (Prozac) 40 mg PO QDAY [facility] Last Admin: 11/10/17 09:52 Dose: 40 mg Potassium Chloride/Dextrose/Sod Cl (D5w/0.45% Nacl/Kcl 10 Meq) 10 meq in 1,000 mls @ 100 mls/hr IV DIRECT [facility] Last Admin: 11/09/17 05:55 Dose: 100 mls/hr Ceftriaxone Sodium 1 gm/ (Sodium Chloride) 20 mls @ 20 mls/10 min IV Q24H [facility] Last Admin: 11/09/17 16:30 Dose: 20 mls/10 min Risperidone (Risperdal) 0.5 mg PO HS [facility] Last Admin: 11/09/17 22:45 Dose: 0.5 mg Physical Examination - Vital Signs Vital Signs: Vital Signs Temp Pulse Resp BP Pulse Ox 98 F 90 20 60/30 97 11/02/17 12:31 11/02/17 12:31 11/02/17 12:31 11/02/17 12:31 11/02/17 12:31 Results - Laboratory Findings CBC and BMP: 11/06/17 06:27 11/06/17 06:27 Abnormal Lab Findings: Abnormal Labs 11/02/17 11/02/17 11/02/17 14:28 Unknown Unknown RBC Hgb Hct MCHC Lymph % (Auto) 7.4 L [place] % (Auto) Lymph # 0.7 L [place] # Seg Neutrophils % 84.9 H Seg Neutrophils # 8.6 H PT 15.2 H INR 1.14 H Thrombin Time Sodium Potassium Chloride BUN Creatinine Glucose POC Glucose Calcium Total Creatine Kinase Troponin T Total Protein Albumin HDL Cholesterol Urine WBC (Auto) 12.0 H 11/02/17 11/02/17 11/02/17 Unknown Unknown Unknown RBC Hgb Hct MCHC Lymph % (Auto) [place] % (Auto) Lymph # [place] # Seg Neutrophils % Seg Neutrophils # PT INR Thrombin Time 14.6 L Sodium Potassium 3.5 L Chloride 94.7 L BUN 44 H Creatinine 2.0 H Glucose 135 H POC Glucose Calcium Total Creatine Kinase 246 H Troponin T 0.031 H Total Protein Albumin HDL Cholesterol 62 H Urine WBC (Auto) 11/03/17 11/03/17 11/03/17 05:35 05:35 16:18 RBC 3.30 L Hgb 10.1 L 10.2 L Hct 29.3 L D 31.5 L MCHC Lymph % (Auto) [place] % (Auto) 10.1 H Lymph # [place] # 1.1 H Seg Neutrophils % 73.3 H Seg Neutrophils # 7.8 H PT INR Thrombin Time Sodium Potassium Chloride BUN 31 H Creatinine Glucose 112 H POC Glucose Calcium Total Creatine Kinase Troponin T Total Protein Albumin 3.2 L HDL Cholesterol Urine WBC (Auto) 11/04/17 11/04/17 11/04/17 06:15 06:15 09:08 RBC 3.27 L Hgb 10.0 L Hct 29.2 L MCHC Lymph % (Auto) [place] % (Auto) Lymph # [place] # Seg Neutrophils % Seg Neutrophils # PT INR Thrombin Time Sodium 136 L Potassium 3.5 L Chloride BUN Creatinine Glucose 110 H POC Glucose 107 H Calcium 8.3 L Total Creatine Kinase Troponin T Total Protein Albumin HDL Cholesterol Urine WBC (Auto) 11/06/17 11/06/17 11/08/17 06:27 06:27 22:12 RBC 3.33 L Hgb 10.1 L Hct 29.4 L MCHC 35 H Lymph % (Auto) 9.6 L [place] % (Auto) 11.5 H Lymph # 0.7 L [place] # 0.9 H Seg Neutrophils % 76.3 H Seg Neutrophils # PT INR Thrombin Time Sodium 133 L Potassium Chloride BUN 7 L Creatinine 0.7 L Glucose POC Glucose 127 H Calcium 8.3 L Total Creatine Kinase Troponin T Total Protein 6.2 L Albumin 2.8 L HDL Cholesterol Urine WBC (Auto)
--- NOTE | 2017-11-10 17:16 | Progress Note ---
Assessment and Plan Assessment and plan: Patient is a 62-year-old man from home with history of hypertension in Lewy body dementia who presented with syncopal episode -Acute metabolic encephalopathy with dehydration: IV hydration - Hypotension: Amlodipine on hold -Lewy body dementia with autonomic dysfunction is a poor prognostic sign: Neurology following. Input appreciated -Syncope, autonomic dysfunction: Conservative management -UTI: abx, No growth so far on Cx -TOMY, vasomotor nephropathy, poa: resolved DVT Prophylaxis with heparin Disposition: Awaiting placement History Interval history: No new events Hospitalist Physical - Physical exam Narrative exam: Gen Appearance: Not in acute distress HEENT: Normocephalic, atraumatic Lungs:Clear to auscultation bilaterally, no crackles or wheeze Heart :S1 and S2 regular, no murmurs, rubs or gallop Abdomen: Soft, non-tender, non distended, Normal bowel sounds Extremities no edema clubbing no cyanosis, Neuro: Awake,alert, - Constitutional Vitals: Temp Pulse Resp BP Pulse Ox 97.6 F 88 20 105/78 98 11/10/17 08:07 11/10/17 09:52 11/10/17 08:07 11/10/17 09:52 11/10/17 08:07 General appearance: Present: no acute distress, well-nourished Results - Labs CBC & Chem 7: 11/06/17 06:27 11/11/17 23:30 Labs: Laboratory Last Values WBC 7.7 K/mm3 (4.5-11.0) 11/06/17 06:27 RBC 3.33 M/mm3 (3.65-5.03) L 11/06/17 06:27 Hgb 10.1 gm/dl (11.8-15.2) L 11/06/17 06:27 Hct 29.4 % (35.5-45.6) L 11/06/17 06:27 MCV 88 fl (84-94) 11/06/17 06:27 MCH 30 pg (28-32) 11/06/17 06:27 MCHC 35 % (32-34) H 11/06/17 06:27 RDW 13.6 % (13.2-15.2) 11/06/17 06:27 Plt Count 194 K/mm3 (140-440) 11/06/17 06:27 Lymph % (Auto) 9.6 % (13.4-35.0) L 11/06/17 06:27 [place] % (Auto) 11.5 % (0.0-7.3) H 11/06/17 06:27 Eos % (Auto) 2.3 % (0.0-4.3) 11/06/17 06:27 Baso % (Auto) 0.3 % (0.0-1.8) 11/06/17 06:27 Lymph # 0.7 K/mm3 (1.2-5.4) L 11/06/17 06:27 [place] # 0.9 K/mm3 (0.0-0.8) H 11/06/17 06:27 Eos # 0.2 K/mm3 (0.0-0.4) 11/06/17 06:27 Baso # 0.0 K/mm3 (0.0-0.1) 11/06/17 06:27 Seg Neutrophils % 76.3 % (40.0-70.0) H 11/06/17 06:27 Seg Neutrophils # 5.8 K/mm3 (1.8-7.7) 11/06/17 06:27 PT 15.2 Sec. (12.2-14.9) H 11/02/17 Unknown INR 1.14 (0.87-1.13) H 11/02/17 Unknown APTT 27.2 Sec. (24.2-36.6) 11/02/17 Unknown Thrombin Time 14.6 Sec. (15.1-19.6) L 11/02/17 Unknown VBG pH 7.340 (7.320-7.420) 11/02/17 18:10 Sodium 133 mmol/L (137-145) L 11/06/17 06:27 Potassium 3.9 mmol/L (3.6-5.0) 11/06/17 06:27 Chloride 98.0 mmol/L (98-107) 11/06/17 06:27 Carbon Dioxide 23 mmol/L (22-30) 11/06/17 06:27 Anion Gap 16 mmol/L 11/06/17 06:27 BUN 7 mg/dL (9-20) L 11/06/17 06:27 Creatinine 0.7 mg/dL (0.8-1.5) L 11/06/17 06:27 Estimated GFR > 60 ml/min 11/06/17 06:27 BUN/Creatinine Ratio 10 % 11/06/17 06:27 Glucose 99 mg/dL (75-100) 11/06/17 06:27 POC Glucose 127 (70-105) H 11/08/17 22:12 Lactic Acid 0.80 mmol/L (0.7-2.0) 11/02/17 18:10 Calcium 8.3 mg/dL (8.4-10.2) L 11/06/17 06:27 Magnesium 2.00 mg/dL (1.7-2.3) 11/03/17 05:35 Total Bilirubin 0.30 mg/dL (0.1-1.2) 11/06/17 06:27 AST 22 units/L (5-40) 11/06/17 06:27 ALT 34 units/L (7-56) 11/06/17 06:27 Alkaline Phosphatase 64 units/L (35-129) 11/06/17 06:27 Total Creatine Kinase 246 units/L (55-170) H 11/02/17 Unknown CK-MB (CK-2) 3.7 ng/mL (0.0-4.0) 11/02/17 Unknown CK-MB (CK-2) Rel Index 1.5 (0-4) 11/02/17 Unknown Troponin T < 0.010 ng/mL (0.00-0.029) 11/03/17 07:52 Total Protein 6.2 g/dL (6.3-8.2) L 11/06/17 06:27 Albumin 2.8 g/dL (3.9-5) L 11/06/17 06:27 Albumin/Globulin Ratio 0.8 % 11/06/17 06:27 Triglycerides 54 mg/dL (2-149) 11/02/17 Unknown Cholesterol 135 mg/dL (50-199) 11/02/17 Unknown LDL Cholesterol Direct 63 mg/dL (50-130) 11/02/17 Unknown HDL Cholesterol 62 mg/dL (40-59) H 11/02/17 Unknown Cholesterol/HDL Ratio 2.17 % 11/02/17 Unknown Urine Color Yellow (Yellow) 11/02/17 14:28 Urine Turbidity Clear (Clear) 11/02/17 14:28 Urine pH 6.0 (5.0-7.0) 11/02/17 14:28 Ur Specific [place] 1.018 (1.003-1.030) 11/02/17 14: Urine Protein 30 mg/dl mg/dL (Negative) 11/02/17 14:28 Urine Glucose (UA) 50 mg/dL (Negative) 11/02/17 14: Urine Ketones Tr mg/dL (Negative) 11/02/17 14: Urine Blood Lg (Negative) 11/02/17 14: Urine Nitrite Neg (Negative) 11/02/17 14: Urine Bilirubin Neg (Negative) 11/02/17 14: Urine Urobilinogen 4.0 mg/dL (<2.0) 11/02/17 14:28 Ur Leukocyte Esterase Neg (Negative) 11/02/17 14:28 Urine WBC (Auto) 12.0 /HPF (0.0-6.0) H 11/02/17 14: Urine RBC (Auto) 63.0 /HPF (0.0-6.0) 11/02/17 14:28 U Epithel Cells (Auto) 1.0 /HPF (0-13.0) 11/02/17 14:28 Hyaline Casts 1 /LPF 11/02/17 14:28 Urine Mucus 1+ /HPF 11/02/17 14:28
[2017-11-10] MEDS: cefTRIAXone 1 GM in NACL 0.9% 20 ML IV SCH (17:46)
[2017-11-10] MEDS: RisperDAL PO SCH (22:00)
[2017-11-11] MEDS: D5W/0.45% NACL/KCL 10 MEQ 10 MEQ/1,000 ML BAG IV SCH (05:42)
[2017-11-11] MEDS: HALFPRIN EC PO SCH (10:19)
[2017-11-11] MEDS: PROzac PO SCH (10:19)
[2017-11-11] MEDS: NORVASC PO SCH (10:20)
--- NOTE | 2017-11-11 11:41 | Vascular Lab Report ---
CAROTID DUPLEX STUDY: RIGHT PSVEDV CCA PROX:9816 CCA DIST:8817 ICA PROX:5820 ICA MID:6328 ICA DIST:6627 ECA: 51 VERT: 49 12 LEFT PSVEDV CCA PROX:9220 CCA DIST:6717 ICA PROX:5920 ICA MID:6222 ICA DIST:7026 ECA: 65 VERT: 51 17 REASON FOR EXAM: Syncope. COMMENTS ON THE RIGHT: Doppler frequency analysis is consistent with 16 to 49 percent diameter reduction of the internal carotid artery. Minimal amount of plaque is seen. The common carotid artery is patent. The external carotid artery is patent. The vertebral artery has antegrade flow. COMMENTS ON THE LEFT: Doppler frequency analysis is consistent with 16 to 49 percent diameter reduction of the internal carotid artery. Minimal amount of plaque is seen. The common carotid artery is patent. The external carotid artery is patent. The vertebral artery has antegrade flow. IMPRESSION: Less than 50% diameter reduction in the internal carotid arteries bilaterally.
--- NOTE | 2017-11-11 12:37 | Progress Note ---
Subjective - Reason for Consult Consult date: 11/11/17 Reason for consult: Psychiatry Follow-up - Chief Complaint Chief complaint: "How are you" 62-year-old male with a past medical history hypertension, Lewy body dementia, and psychosis presents to the hospital with multiple episodes of syncope and increased episodes of combative behavior. Today the patient is calm, but still confused during the assessment. He said "hello" to me when I arrived to his room. This was the first time the patient greeted me per previous assessments. No gestures of SI/HI's. Mental Status Exam - Vital signs Last Vital Signs Temp 98.6 F 11/11/17 10:44 Pulse 83 11/11/17 10:44 Resp 16 11/11/17 10:44 BP 128/81 11/11/17 10:44 Pulse Ox 99 11/11/17 10:44 - Exam Narrative exam: MSE: Appearance: calm Behavior: regular eye contact Speech: regular rate and tone Mood: "okay" Affect: congruent to mood Thought Process: unable to assess Thought Content: no gestures of SI/HI's and AVH's Motor Activity: lying in bed Cognition: confused Insight: limited Judgment: limited Assessment and Plan Impression: Lewy Body Dementia. Today patient is calm during the assessment. Medical: Acute Metabolic Encephalopathy with dehydration Recommendation/Plan: Continue home medications (Prozac and Risperdal). Patient is pending placement, per [facility]. Neuro is following patient. Recommend the following precautions below: 1. Frequently reorient patient and involve him/her in their care (simple explanations of procedures, tests, medications). 2. Lights on and shades open during daytime hours. 3. Try to avoid unnecessary interruptions to sleep during nighttime hours. 4. Obtain glasses, hearing aids from home if patient uses these at baseline. 5. Avoid medications that may exacerbate delirium (especially narcotics, barbiturates, ambien, lunesta, benzos, and medications with excessive anticholinergic properties). 6. Recommend 1:1 sitter for safety. 7. Use Haldol 2 mg IM Q6hrs PRN for acute agitation.
--- NOTE | 2017-11-11 14:15 | Discharge Summary ---
Providers - Providers Date of Admission: 11/02/17 16:26 Date of discharge: 11/11/17 Attending physician: CINDY MATT 11/02/17 19:51 Consult to Mental Health [CONS] Routine Reason For Exam: dementia with behavior disorder Place consult to:: Mental Health Notified:: Arminda RN Phone number called:: [phone]. [phone] Was contact made?: Yes If yes, spoke with:: Shaun-mental health Time called:: 08:04 11/03/17 10:40 Occupational Therapy Evaluate and Treat [CONS] Routine Comment: Reason For Exam: skill level for SNF Physical Therapy Evaluation and Treat [CONS] Routine Comment: Reason For Exam: skill level for snf 11/03/17 12:44 Consult to Physician [CONS] Routine Consulting Provider: LOUISE OSPINA Reason For Exam: AMS, lewy body dementia Place consult to:: Dr. Ospina Notified:: Arminda RN Phone number called:: Was contact made?: Yes If yes, spoke with:: Britni-Office Time called:: 15:12 11/03/17 17:10 Speech Therapy Evaluation and Treat [CONS] Routine Reason For Exam: swallow eval/diet recommendation 11/04/17 07:29 Consult to Wound/ET Nurse [CONS] Urgent Reason For Exam: wound eval Primary care physician: ENERGY AND SUSTAINABILITY MANAGER Hospitalization Condition: Fair Disposition: DC/[place]-03 SNF W [facility] CERT Core Measure Documentation - Palliative Care Palliative Care/ Comfort Measures: Not Applicable Exam - Constitutional Vitals: Temp Pulse Resp BP Pulse Ox 98.6 F 83 16 128/81 99 11/11/17 10:44 11/11/17 10:44 11/11/17 10:44 11/11/17 10:44 11/11/17 10:44 Plan Activity: advance as tolerated Diet: other (Mechanical soft diet) Special Instructions: home health RN Additional Instructions: 1.Follow up with PCP in 3-5 days. Follow up with: PRIMARY CARE,MD [Primary Care Provider] - 7 Days Prescriptions: amLODIPine [Norvasc] 10 mg PO QDAY #30 tablet
[2017-11-11] MEDS: cefTRIAXone 1 GM in NACL 0.9% 20 ML IV SCH (16:49)
[2017-11-11] MEDS: RisperDAL PO SCH (23:09)
[2017-11-12 00:07] LABS: BUN/Creatinine Ratio 13; Blood Urea Nitrogen 9 mg/dL (9-20); Hemolysis Index 11
--- NOTE | 2017-11-12 01:49 | Progress Note ---
Assessment and Plan Assessment and plan: Patient is a 62-year-old man from home with history of hypertension in Lewy body dementia who presented with syncopal episode -Acute metabolic encephalopathy with dehydration: IV hydration - Hypotension: Amlodipine on hold -Lewy body dementia with autonomic dysfunction is a poor prognostic sign: Neurology following. Input appreciated -Syncope, autonomic dysfunction: Conservative management -UTI: abx, No growth so far on Cx -TOMY, vasomotor nephropathy, poa: resolved DVT Prophylaxis with heparin Disposition: Awaiting placement. manager global says patient will go tomorrow. History Interval history: No new events Hospitalist Physical - Physical exam Narrative exam: Gen Appearance: Not in acute distress HEENT: Normocephalic, atraumatic Lungs:Clear to auscultation bilaterally, no crackles or wheeze Heart :S1 and S2 regular, no murmurs, rubs or gallop Abdomen: Soft, non-tender, non distended, Normal bowel sounds Extremities no edema clubbing no cyanosis, Neuro: Awake,alert, - Constitutional Vitals: Temp Pulse Resp BP Pulse Ox 98.3 F 85 18 106/59 99 11/11/17 23:09 11/11/17 16:51 11/11/17 23:09 11/11/17 23:09 11/11/17 16:51 General appearance: Present: no acute distress, well-nourished Results - Labs CBC & Chem 7: 11/06/17 06:27 11/11/17 23:30 Labs: Laboratory Last Values WBC 7.7 K/mm3 (4.5-11.0) 11/06/17 06:27 RBC 3.33 M/mm3 (3.65-5.03) L 11/06/17 06:27 Hgb 10.1 gm/dl (11.8-15.2) L 11/06/17 06:27 Hct 29.4 % (35.5-45.6) L 11/06/17 06:27 MCV 88 fl (84-94) 11/06/17 06:27 MCH 30 pg (28-32) 11/06/17 06:27 MCHC 35 % (32-34) H 11/06/17 06:27 RDW 13.6 % (13.2-15.2) 11/06/17 06:27 Plt Count 194 K/mm3 (140-440) 11/06/17 06:27 Lymph % (Auto) 9.6 % (13.4-35.0) L 11/06/17 06:27 [place] % (Auto) 11.5 % (0.0-7.3) H 11/06/17 06:27 Eos % (Auto) 2.3 % (0.0-4.3) 11/06/17 06:27 Baso % (Auto) 0.3 % (0.0-1.8) 11/06/17 06:27 Lymph # 0.7 K/mm3 (1.2-5.4) L 11/06/17 06:27 [place] # 0.9 K/mm3 (0.0-0.8) H 11/06/17 06:27 Eos # 0.2 K/mm3 (0.0-0.4) 11/06/17 06:27 Baso # 0.0 K/mm3 (0.0-0.1) 11/06/17 06:27 Seg Neutrophils % 76.3 % (40.0-70.0) H 11/06/17 06:27 Seg Neutrophils # 5.8 K/mm3 (1.8-7.7) 11/06/17 06:27 PT 15.2 Sec. (12.2-14.9) H 11/02/17 Unknown INR 1.14 (0.87-1.13) H 11/02/17 Unknown APTT 27.2 Sec. (24.2-36.6) 11/02/17 Unknown Thrombin Time 14.6 Sec. (15.1-19.6) L 11/02/17 Unknown VBG pH 7.340 (7.320-7.420) 11/02/17 18:10 Sodium 134 mmol/L (137-145) L 11/11/17 23:30 Potassium 3.8 mmol/L (3.6-5.0) 11/11/17 23:30 Chloride 99.6 mmol/L (98-107) 11/11/17 23:30 Carbon Dioxide 23 mmol/L (22-30) 11/11/17 23:30 Anion Gap 15 mmol/L 11/11/17 23:30 BUN 9 mg/dL (9-20) 11/11/17 23:30 Creatinine 0.7 mg/dL (0.8-1.5) L 11/11/17 23:30 Estimated GFR > 60 ml/min 11/11/17 23:30 BUN/Creatinine Ratio 13 % 11/11/17 23:30 Glucose 94 mg/dL (75-100) 11/11/17 23:30 POC Glucose 127 (70-105) H 11/08/17 22:12 Lactic Acid 0.80 mmol/L (0.7-2.0) 11/02/17 18:10 Calcium 8.0 mg/dL (8.4-10.2) L 11/11/17 23:30 Magnesium 2.00 mg/dL (1.7-2.3) 11/03/17 05:35 Total Bilirubin 0.30 mg/dL (0.1-1.2) 11/06/17 06:27 AST 22 units/L (5-40) 11/06/17 06:27 ALT 34 units/L (7-56) 11/06/17 06:27 Alkaline Phosphatase 64 units/L (35-129) 11/06/17 06:27 Total Creatine Kinase 246 units/L (55-170) H 11/02/17 Unknown CK-MB (CK-2) 3.7 ng/mL (0.0-4.0) 11/02/17 Unknown CK-MB (CK-2) Rel Index 1.5 (0-4) 11/02/17 Unknown Troponin T < 0.010 ng/mL (0.00-0.029) 11/03/17 07:52 Total Protein 6.2 g/dL (6.3-8.2) L 11/06/17 06:27 Albumin 2.8 g/dL (3.9-5) L 11/06/17 06:27 Albumin/Globulin Ratio 0.8 % 11/06/17 06:27 Triglycerides 54 mg/dL (2-149) 11/02/17 Unknown Cholesterol 135 mg/dL (50-199) 11/02/17 Unknown LDL Cholesterol Direct 63 mg/dL (50-130) 11/02/17 Unknown HDL Cholesterol 62 mg/dL (40-59) H 11/02/17 Unknown Cholesterol/HDL Ratio 2.17 % 11/02/17 Unknown Urine Color Yellow (Yellow) 11/02/17 14:28 Urine Turbidity Clear (Clear) 11/02/17 14:28 Urine pH 6.0 (5.0-7.0) 11/02/17 14:28 Ur Specific [place] 1.018 (1.003-1.030) 11/02/17 14:28 Urine Protein 30 mg/dl mg/dL (Negative) 11/02/17 14:28 Urine Glucose (UA) 50 mg/dL (Negative) 11/02/17 14:28 Urine Ketones Tr mg/dL (Negative) 11/02/17 14:28 Urine Blood Lg (Negative) 11/02/17 14:28 Urine Nitrite Neg (Negative) 11/02/17 14:28 Urine Bilirubin Neg (Negative) 11/02/17 14:28 Urine Urobilinogen 4.0 mg/dL (<2.0) 11/02/17 14:28 Ur Leukocyte Esterase Neg (Negative) 11/02/17 14:28 Urine WBC (Auto) 12.0 /HPF (0.0-6.0) H 11/02/17 14:28 Urine RBC (Auto) 63.0 /HPF (0.0-6.0) 11/02/17 14:28 U Epithel Cells (Auto) 1.0 /HPF (0-13.0) 11/02/17 14:28 Hyaline Casts 1 /LPF 11/02/17 14:28 Urine Mucus 1+ /HPF 11/02/17 14:28
[2017-11-12] MEDS: HALFPRIN EC PO SCH (11:25)
[2017-11-12] MEDS: PROzac PO SCH (11:25)
[2017-11-12] MEDS: NORVASC PO SCH (11:26)
--- NOTE | 2017-11-12 12:39 | Progress Note ---
Subjective - Reason for Consult Consult date: 11/12/17 Reason for consult: Psychiatry Follow-up - Chief Complaint Chief complaint: "Hi" 62-year-old male with a past medical history hypertension, Lewy body dementia, and psychosis presents to the hospital with multiple episodes of syncope and increased episodes of combative behavior. No changes to patient's presentation per previous assessment. No gestures of SI/HI's. Mental Status Exam - Vital signs Last Vital Signs Temp 98.4 F 11/12/17 09:01 Pulse 70 11/12/17 11:26 Resp 20 11/12/17 09:01 BP 101/60 11/12/17 11:26 Pulse Ox 100 11/12/17 09:01 - Exam Narrative exam: MSE: Appearance: calm Behavior: regular eye contact Speech: regular rate and tone Mood: "okay" Affect: congruent to mood Thought Process: unable to assess Thought Content: no gestures of SI/HI's and AVH's Motor Activity: lying in bed Cognition: confused Insight: limited Judgment: limited Assessment and Plan Impression: Lewy Body Dementia. Today patient is calm during the assessment. Medical: Acute Metabolic Encephalopathy with dehydration Recommendation/Plan: Continue home medications (Prozac and Risperdal). Patient is pending placement, per [facility]. Neuro is following patient. Recommend the following precautions below: 1. Frequently reorient patient and involve him/her in their care (simple explanations of procedures, tests, medications). 2. Lights on and shades open during daytime hours. 3. Try to avoid unnecessary interruptions to sleep during nighttime hours. 4. Obtain glasses, hearing aids from home if patient uses these at baseline. 5. Avoid medications that may exacerbate delirium (especially narcotics, barbiturates, ambien, lunesta, benzos, and medications with excessive anticholinergic properties). 6. Recommend 1:1 sitter for safety. 7. Use Haldol 2 mg IM Q6hrs PRN for acute agitation.
[2017-11-12 12:48] VITALS: BP 108/61
--- NOTE | 2017-11-12 15:57 | Event Note ---
Date: 11/12/17 Patient going home today
--- NOTE | 2017-11-12 15:57 | Progress Note ---
Hospitalist Physical - Constitutional Vitals: Temp Pulse Resp BP Pulse Ox 97.7 F 78 20 108/61 98 11/12/17 12:47 11/12/17 12:47 11/12/17 12:47 11/12/17 12:47 11/12/17 12:47 General appearance: Present: no acute distress, well-nourished Results - Labs CBC & Chem 7: 11/06/17 06:27 11/11/17 23:30 Labs: Laboratory Last Values WBC 7.7 K/mm3 (4.5-11.0) 11/06/17 06:27 RBC 3.33 M/mm3 (3.65-5.03) L 11/06/17 06:27 Hgb 10.1 gm/dl (11.8-15.2) L 11/06/17 06:27 Hct 29.4 % (35.5-45.6) L 11/06/17 06:27 MCV 88 fl (84-94) 11/06/17 06:27 MCH 30 pg (28-32) 11/06/17 06:27 MCHC 35 % (32-34) H 11/06/17 06:27 RDW 13.6 % (13.2-15.2) 11/06/17 06:27 Plt Count 194 K/mm3 (140-440) 11/06/17 06:27 Lymph % (Auto) 9.6 % (13.4-35.0) L 11/06/17 06:27 [place] % (Auto) 11.5 % (0.0-7.3) H 11/06/17 06:27 Eos % (Auto) 2.3 % (0.0-4.3) 11/06/17 06:27 Baso % (Auto) 0.3 % (0.0-1.8) 11/06/17 06:27 Lymph # 0.7 K/mm3 (1.2-5.4) L 11/06/17 06:27 [place] # 0.9 K/mm3 (0.0-0.8) H 11/06/17 06:27 Eos # 0.2 K/mm3 (0.0-0.4) 11/06/17 06:27 Baso # 0.0 K/mm3 (0.0-0.1) 11/06/17 06:27 Seg Neutrophils % 76.3 % (40.0-70.0) H 11/06/17 06:27 Seg Neutrophils # 5.8 K/mm3 (1.8-7.7) 11/06/17 06:27 PT 15.2 Sec. (12.2-14.9) H 11/02/17 Unknown INR 1.14 (0.87-1.13) H 11/02/17 Unknown APTT 27.2 Sec. (24.2-36.6) 11/02/17 Unknown Thrombin Time 14.6 Sec. (15.1-19.6) L 11/02/17 Unknown VBG pH 7.340 (7.320-7.420) 11/02/17 18:10 Sodium 134 mmol/L (137-145) L 11/11/17 23:30 Potassium 3.8 mmol/L (3.6-5.0) 11/11/17 23:30 Chloride 99.6 mmol/L (98-107) 11/11/17 23:30 Carbon Dioxide 23 mmol/L (22-30) 11/11/17 23:30 Anion Gap 15 mmol/L 11/11/17 23:30 BUN 9 mg/dL (9-20) 11/11/17 23:30 Creatinine 0.7 mg/dL (0.8-1.5) L 11/11/17 23:30 Estimated GFR > 60 ml/min 11/11/17 23:30 BUN/Creatinine Ratio 13 % 11/11/17 23:30 Glucose 94 mg/dL (75-100) 11/11/17 23:30 POC Glucose 88 (70-105) 11/12/17 07:48 Lactic Acid 0.80 mmol/L (0.7-2.0) 11/02/17 18:10 Calcium 8.0 mg/dL (8.4-10.2) L 11/11/17 23:30 Magnesium 2.00 mg/dL (1.7-2.3) 11/03/17 05:35 Total Bilirubin 0.30 mg/dL (0.1-1.2) 11/06/17 06:27 AST 22 units/L (5-40) 11/06/17 06:27 ALT 34 units/L (7-56) 11/06/17 06:27 Alkaline Phosphatase 64 units/L (35-129) 11/06/17 06:27 Total Creatine Kinase 246 units/L (55-170) H 11/02/17 Unknown CK-MB (CK-2) 3.7 ng/mL (0.0-4.0) 11/02/17 Unknown CK-MB (CK-2) Rel Index 1.5 (0-4) 11/02/17 Unknown Troponin T < 0.010 ng/mL (0.00-0.029) 11/03/17 07:52 Total Protein 6.2 g/dL (6.3-8.2) L 11/06/17 06:27 Albumin 2.8 g/dL (3.9-5) L 11/06/17 06:27 Albumin/Globulin Ratio 0.8 % 11/06/17 06:27 Triglycerides 54 mg/dL (2-149) 11/02/17 Unknown Cholesterol 135 mg/dL (50-199) 11/02/17 Unknown LDL Cholesterol Direct 63 mg/dL (50-130) 11/02/17 Unknown HDL Cholesterol 62 mg/dL (40-59) H 11/02/17 Unknown Cholesterol/HDL Ratio 2.17 % 11/02/17 Unknown Urine Color Yellow (Yellow) 11/02/17 14:28 Urine Turbidity Clear (Clear) 11/02/17 14:28 Urine pH 6.0 (5.0-7.0) 11/02/17 14:28 Ur Specific [place] 1.018 (1.003-1.030) 11/02/17 14:28 Urine Protein 30 mg/dl mg/dL (Negative) 11/02/17 14:28 Urine Glucose (UA) 50 mg/dL (Negative) 11/02/17 14:28 Urine Ketones Tr mg/dL (Negative) 11/02/17 14:28 Urine Blood Lg (Negative) 11/02/17 14:28 Urine Nitrite Neg (Negative) 11/02/17 14:28 Urine Bilirubin Neg (Negative) 11/02/17 14:28 Urine Urobilinogen 4.0 mg/dL (<2.0) 11/02/17 14:28 Ur Leukocyte Esterase Neg (Negative) 11/02/17 14:28 Urine WBC (Auto) 12.0 /HPF (0.0-6.0) H 11/02/17 14:28 Urine RBC (Auto) 63.0 /HPF (0.0-6.0) 11/02/17 14:28 U Epithel Cells (Auto) 1.0 /HPF (0-13.0) 11/02/17 14:28 Hyaline Casts 1 /LPF 11/02/17 14:28 Urine Mucus 1+ /HPF 11/02/17 14:28
== END 2017-11-12 17:40 | DRG 56 ==
LOC: ED 12:20 → 4A 16:26
PROVIDERS: ADMIT Internal Medicine; ATTEND Internal Medicine
DX: G31.83 Neurocognitive disorder with Lewy bodies (principal); G93.41 Metabolic encephalopathy; N17.0 Acute kidney failure with tubular necrosis; N39.0 Urinary tract infection, site not specified; F02.81 Dementia in other diseases classified elsewhere, unspecified severity, with behavioral disturbance; N28.9 Disorder of kidney and ureter, unspecified; R55 Syncope and collapse; I95.9 Hypotension, unspecified; E87.6 Hypokalemia; I10 Essential (primary) hypertension; G90.8 Other disorders of autonomic nervous system; E86.0 Dehydration
CPT/HCPCS: 36415; 70450; 71045; 78452; 80048; 80053; 80061; 81001; 82140; 82550; 82553; 82805; 82962; 83735; 84484; 85014; 85018; 85025; 85027; 85610; 85670; 85730; 87040; 87086; 93005; 93010; 93017; 93306; 93880; 96361; 96374; A9502; J0696; J2785; J7030

== ENCOUNTER 2017-11-20 17:19 | Emergency (ER) | payer SELFPAY ==
[2017-11-20 23:48] LABS: Hematocrit 40.2 % (35.5-45.6); Hemoglobin 12.8 gm/dl (11.8-15.2); Mean Corpuscular HGB Conc 32 % (32-34); Mean Corpuscular Hemoglobin 29 pg (28-32); Mean Corpuscular Volume 92 fl (84-94); Platelet Count 240 K/mm3 (140-440); Red Blood Count 4.38 M/mm3 (3.65-5.03); Red Cell Distribution Width 14.8 % (13.2-15.2)
[2017-11-20 23:56] LABS: BUN/Creatinine Ratio 42; Blood Urea Nitrogen 46 mg/dL (9-20); Hemolysis Index 296
[2017-11-21] MEDS ORDERED: NACL 0.9% 1000 ML 1,000 ML IV ONE (09:14)
--- NOTE | 2017-11-21 09:26 | Emergency Department Report ---
HPI - General Chief Complaint: Weakness Time Seen by Provider: 11/21/17 09:03 - HPI HPI: 62 year-old male presents to the emergency department with his family with a complaint of the patient not eating. He has a history of lewy body dementia and was recently admitted and discharged from [facility] beds at the [facility] after he was here for weakness, recurrent falls, dizziness. At that time he had an echocardiogram that showed an EF of 50-55%, a negative stress test, and a carotid Doppler that showed less than 50% diameter reduction. He was seen by neurology and since that time the patient has been set up to go to an assisted living facility and goes there on , 4 days from now. The family says that he has been hallucinating secondary to his Lewy body dementia. They said that he has been drinking but he has not been eating much since discharge. ED Past Medical Hx - Past Medical History Previous Medical History?: Yes Hx Hypertension: Yes (Per daughter) Hx Congestive Heart Failure: No Hx Diabetes: No Hx Psychiatric Treatment: Yes (psychosis Dementia) Hx Asthma: No Hx COPD: No Hx Dementia: Yes (Per daughter) Hx HIV: No Additional medical history: Was d/c'd from here last week for the same thing not eating, falls, and fainting - Surgical History Past Surgical History?: No - Social History Smoking Status: Never Smoker Substance Use Type: None - Medications Home Medications: Home Medications Medication Instructions Recorded Confirmed Last Taken Type Aspirin [Aspirin EC] 81 mg PO DAILY 11/02/17 11/02/17 11/01/17 History FLUoxetine HCL [PROzac] 40 mg PO QDAY 11/02/17 11/02/17 11/01/17 History Hydrochlorothiazide [HCTZ] 25 mg PO QDAY 11/02/17 11/02/17 11/01/17 History Lisinopril [Zestril TAB] 10 mg PO QDAY 11/02/17 11/02/17 11/01/17 History risperiDONE [Risperdal] 0.5 mg PO QHS 11/02/17 11/02/17 11/01/17 History amLODIPine [Norvasc] 10 mg PO QDAY #30 tablet 11/11/17 Unknown Rx ED Review of Systems ROS: Stated complaint: NOT EATING Other details as noted in HPI Comment: Unobtainable due to pts medical conditions Physical Exam - Physical Exam Vital Signs: Vital Signs 11/20/17 22:42 Temperature 97.8 F Pulse Rate 96 H Respiratory 18 Rate Blood Pressure 93/62 O2 Sat by Pulse 98 Oximetry Physical Exam: GENERAL: The patient is well-developed well-nourished. HENT: Normocephalic. Atraumatic. Patient has moist mucous membranes. EYES: Extraocular motions are intact. Pupils equal reactive to light bilaterally. NECK: Supple. Trachea is midline. CHEST/LUNGS: Clear to auscultation. There is no respiratory distress noted. HEART/CARDIOVASCULAR: Regular. There is no tachycardia. There is no murmur. ABDOMEN: Abdomen is soft, nontender. Patient has normal bowel sounds. There is no abdominal distention. SKIN: Skin is warm and dry. NEURO: The patient is awake but confused. The patient is mostly nonverbal but was heard asking some questions and did not have any obvious slurred speech. Withdrawal to painful stimuli. MUSCULOSKELETAL: There is no tenderness or deformity. There is no limitation range of motion. There is no evidence of acute injury. ED Course Vital Signs 11/20/17 22:42 Temperature 97.8 F Pulse Rate 96 H Respiratory 18 Rate Blood Pressure 93/62 O2 Sat by Pulse 98 Oximetry ED Medical Decision Making - Lab Data Result diagrams: 11/20/17 23:15 11/20/17 23:15 - Medical Decision Making The patient's labs show some signs of dehydration with a BUN/creatinine ratio of about 40 and a slightly decreased bicarbonate. He was given a liter of IV fluid. Urinalysis did not show any urinary tract infection or any signs of ketones. Vital signs stable throughout his ED course. He presented with some borderline hypotension but his blood pressure normalized prior to discharge. He did not have any decreased albumin or prealbumin level with concern for malnutrition. The patient did not eat much but ate a little bit of applesauce. He was asking for something to drink. The patient is set up for assisted living starting this . I did not feel that the patient required admission at this time as the family did not want to consider a PEG tube and otherwise the patient does not show any significant malnutrition or dehydration that requires inpatient admission. They decided they wanted to take him home and they will attempt to get him to eat and drink and if there is any worsening of symptoms or any acute distress and will bring him back to the emergency department. Critical Care Time: No Critical care attestation.: If time is entered above; I have spent that time in minutes in the direct care of this critically ill patient, excluding procedure time. ED Disposition Clinical Impression: Dehydration Dementia Qualifiers: Dementia type: Lewy body dementia Dementia behavioral disturbance: without behavioral disturbance Qualified Code(s): G31.83 - Dementia with Lewy bodies Disposition: DC-01 TO HOME OR SELFCARE Is pt being admited?: No Condition: Stable Instructions: Dehydration (ED), Dementia (ED) Additional Instructions: Please follow up with the primary care physician as soon as possible. Return to the emergency department with any worsening of his symptoms or any acute distress. Or return if you change your mind about the peg tube placement. Referrals: PRIMARY CARE, [Primary Care Provider] - [facility] Time of Disposition: 12:51
[2017-11-21 10:17] LABS: Alanine Aminotransferase 42 units/L (7-56); Albumin 4.2 g/dL (3.9-5)
[2017-11-21 10:18] LABS: Bilirubin,Direct < 0.2 mg/dL (0-0.2)
[2017-11-21 11:47] LABS: Bilirubin,Urine NEG (Negative); Blood,Urine SM (Negative); Color,Urine Yellow (Yellow); Hyaline Casts,Urine 17 /LPF; Mucus,Urine FEW /HPF; Nitrite,Urine NEG (Negative); Protein,Urine <15 mg/dL mg/dL (Negative)
[2017-11-21 13:00] VITALS: BP 128/63
== END 2017-11-21 13:18 | disposition home or self-care (01) ==
LOC: ED 17:19
DX: E86.0 Dehydration (principal); I10 Essential (primary) hypertension; Z79.82 Long term (current) use of aspirin
CPT/HCPCS: 36415; 80048; 80074; 81001; 84134; 85027; 96360; 96361; 99283; J7030